=== PATIENT | female | born 1950 | race Caucasian/White ===

== ENCOUNTER 2025-03-26 13:36 | Inpatient (IN) | payer MEDICARE, SELFPAY ==
[2025-03-26] VITALS (8 sets, daily range): BP systolic 120–154; BP diastolic 84–111; PULSE 87–112; RESP 15–25; TEMP 36.4–36.6; O2SAT 8–96; BMI 44.9
--- NOTE | 2025-03-26 14:05 | XR_ITS ---
CLINICAL INDICATION: chest pain TECHNIQUE: XR chest 1V portable Exam date and time: 03/26/2025, 2:48 p.m. COMPARISON: No prior chest radiographs for comparison. FINDINGS: The cardiomediastinal silhouette is within normal limits. No airspace opacities suggestive of pneumonia. No mass detected. No pleural effusion or pneumothorax. No acute osseous abnormality detected. Left glenohumeral and acromioclavicular joint osteoarthrosis. IMPRESSION: No radiographic evidence for acute cardiopulmonary abnormality. - This report was generated utilizing speech recognition software. -
--- NOTE | 2025-03-26 14:05 | EKG_ITS ---
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
--- NOTE | 2025-03-26 14:14 | EDNOTE_ITS ---
ED Chest Pain RME/HPI General Chief Complaint: Shortness of Breath/Dyspnea Stated Complaint: SOB O2 SAT 83%, DIZZY, NOT FEELING WELL Time Seen by Provider: 03/26/25 13:51 Arrival date/time: 03/26/25 13:36 RME / HPI RME / HPI narrative: 74 year old female with no known medical history presents to the ED for complaint of chest pain and shortness of breath today. Patient states her chest pain began last night, initially described as aching in sensation, rating as severe. States the chest pain persisted through the night and this morning the chest pain described as pressure in sensation. Accompanied by feeling short of breath and dizzy. No history of similar symptoms. No known modifying factors. Related Data Allergies Allergy/AdvReac Type Severity Reaction Status Date / Time No Known Allergies Allergy Verified 03/26/25 13:39 Review of Systems Review of Systems Systems Reviewed: All systems reviewed, normal except as documented Past Medical History Past Medical History CARDIAC: Negative Cardiac Disorders or Congestive Heart Failure RESPIRATORY: Negative Chronic Obstructive Pulmonary Disease (COPD) or Asthma GENITOURINARY: Negative Renal Disease ENDOCRINE: Negative Diabetes Mellitus Type 1 or Diabetes Mellitus Type 2 HEMATOLOGIC: Negative Sickle Cell Disease Surgical History SURGICAL: Positive Abdominal Surgery, Gastric Bypass Surgery, Knee Sx (R KNEE TOTAL REPLACEMENT) and Hysterectomy Social History SMOKING STATUS: Never smoker ED Exam Narrative Physical exam: GENERAL APPEARANCE: alert and oriented x 4, well-developed, well-nourished, no acute distress HEENT: Normocephalic, atraumatic; pupils equal, round, reactive to light; EOMI; mucous membranes pink, moist; oropharynx clear NECK: Supple LUNGS: CTABL; no wheezes, no rales, no rhonchi HEART: Regular rate, regular rhythm; normal S1, S2; no murmurs ABDOMEN: non distended; normal BS; soft, no tenderness, no guarding, no r ebound; no masses, no organomegaly, no hernia BACK: no CVA tenderness EXTREMITIES: atraumatic; no edema NEUROLOGIC: awake; alert and oriented x4; cranial nerves II-XII grossly intact; no focal sensory or motor deficits PSYCHIATRIC: appropriate mood and affect SKIN: warm, dry, normal color; no rashes Course Course Course Narrative: 1540: Patient reports chest pressure at this time, still feeling short of breath. Quality Measures none Orders Category Date Time Status Bedside COVID-19 Antigen Test NOW Care 03/26/25 14:[address] Screening NOW Care 03/26/25 14:15 Active Gui Developer NOW Care 03/26/25 14:05 Active EKG (ED ONLY) *Do not use* NOW Care 03/26/25 14:05 Completed CA echo doppler complete Stat Exams 03/26/25 15:[address] angio chest Stat Exams 03/26/25 14:15 Taken EKG (ED Only) Stat Exams 03/26/25 14:05 Draft XR chest 1V portable Stat Exams 03/26/25 14:05 Completed B-Type Natriuretic Peptide Stat Lab 03/26/25 14:19 Completed CBC Stat Lab 03/26/25 14:19 Completed Comprehensive Metabolic Panel Stat Lab 03/26/25 14:19 Completed Influenza A & B Rapid Panel Stat Lab 03/26/25 14:40 Completed Lipase Stat Lab 03/26/25 14:19 Completed Magnesium Stat Lab 03/26/25 14:19 Completed Partial Thromboplastin Time Stat Lab 03/26/25 14:19 Completed Prothrombin Time with INR Stat Lab 03/26/25 14:19 Completed Troponin I Stat Lab 03/26/25 14:19 Completed Aspirin Chew Med 03/26/25 15:31 Discontinued 324 mg PO X1 ONE Heparin Inj Med 03/26/25 15:36 Discontinued 4,000 unit IV X1 ONE Heparin/D5w 25K 250 ML Ivpb [Heparin in D5w Ivpb] Med 03/26/25 15:45 Active 25,000 unit in 250 ml IV 7.93 units/kg/hr Morphine* Inj Med 03/26/25 15:44 Discontinued 2 mg IVP X1 ONE Nitroglycerin [Nitrostat 1/150] Med 03/26/25 15:33 Discontinued 0.4 mg SL X1 ONE Ondansetron Inj [Zofran Inj] Med 03/26/25 15:44 Discontinued 4 mg IVP X1 ONE Vital Signs Vital signs: Vital Signs Temperature 97.7 F 03/26/25 13:52 Pulse Rate 112 H 03/26/25 13:52 Respiratory Rate 24 H 03/26/25 13:52 Blood Pressure 154/91 H 03/26/25 13:52 Pulse Oximetry (%) 85 L 03/26/25 13:52 Oxygen Delivery Method Room Air 03/26/25 13:52 Chest Pain Patient data External records reviewed:: [facility] previous records Clinical information provided by:: patient Social determinants that could affect healthcare access:: none Patient has the following chronic illnesses:: No known medical hx How is presenting disease/condition affected by chronic disease/condition?: no chronic disease Evaluation data The following diagnostics were reviewed and interpreted by me:: lab results, radiology exam(s) and EKG tracing(s) (EKG @ 14:33h. Sinus tachycardia, rate 106, Q-wave in lead III ) Lab and/or radiology exams considered but not ordered:: None Interpretation Summary: Ordering Physician: Flavia Will MD Date of Service: 03/26/25 Procedure(s): XR chest 1V portable Accession Number(s): [id number] cc: Flavia Will MD; Gagandeep Cartagena DO~ CLINICAL INDICATION: chest pain TECHNIQUE: XR chest 1V portable Exam date and time: 03/26/2025, 2:48 p.m. COMPARISON: No prior chest radiographs for comparison. FINDINGS: The cardiomediastinal silhouette is within normal limits. No airspace opacities suggestive of pneumonia. No mass detected. No pleural effusion or pneumothorax. No acute osseous abnormality detected. Left glenohumeral and acromioclavicular joint osteoarthrosis. IMPRESSION: No radiographic evidence for acute cardiopulmonary abnormality. - This report was generated utilizing speech recognition software. - Dictated By: Gagandeep Cartagena DO Signed By: <Electronically signed by Gagandeep Cartagena DO in OV> 03/26/25 1509 Ordering Physician: Flavia Will MD Date of Service: 03/26/25 Procedure(s): CT angio chest Accession Number(s): [id number] cc: Loreto Saul PA-C ([facility]); Flavia Will MD; Gagandeep Cartagena DO~ Examination: CTA chest with intravenous contrast 2-D reconstructions 3-D reconstructions, vascular Date and time of exam: 03/26/2025, 4:22 p.m. INDICATION: Shortness of breath and chest pain COMPARISON: Same day chest radiograph CTDI: vol (mGy) 22.8 DLP: (mGycm) 458 Technique: Multiple axial sections of the thorax have been obtained. 3 mm slice thickness, from below the hemidiaphragms to above the apices of the lungs. Mediastinal and lung density settings have been obtained. 2-D sagittal and coronal reconstructions. 3-D angiographic renderings, 3-D volume renderings, 3D post processing, vascular maximum intensity projections obtained. Contrast administered is 100 mL of Isovue 370 IV. Low dose protocols were performed. One or more of the following dose reduction techniques were used; automated exposure control, adjustment of the mA and/or KV according to patient size, use of iterative reconstruction technique. Findings: Diagnostic quality: Very good. Large pulmonary emboli are visualized in the left main pulmonary artery extending into the left upper and left lower lobar arteries and their segmental and subsegmental branches. Much smaller pulmonary embolism burden is visualized on the right side, involving the distal main pulmonary artery with extension into the right lower lobar artery and segmental and subsegmental branches, most pronounced in the posterior basal segment. Mild embolism identified in the right middle lobe pulmonary artery. Asymmetric enlargement of the right ventricle and right atrium is highly suggestive of right heart strain. No pericardial fusion. Mild right basilar subsegmental atelectasis. No evidence for moderate or large pulmonary infarct. No pleural effusion or pneumothorax. No lung mass. No thoracic aortic aneurysm or dissection. No mediastinal or hilar lymphadenopathy. Equivocal very small sliding-type hiatal hernia. Below the diaphragm, evidence of gastric bypass surgery noted. Colonic diverticulosis without evidence for acute diverticulitis in the [id number]. No hydronephrosis in the [id number]. No adrenal nodules. Multifocal degenerative changes with otherwise no evidence for recent fracture or aggressive lesion. Impression: Significant pulmonary embolism burden, left side much greater than right, with evidence of right heart strain. Critical findings were immediately discussed with Dr. WILL via telephone on 03/26/2025 4:48 PM. Dictated By: Gagandeep Cartagena DO Signed By: <Electronically signed by Gagandeep Cartagena DO in OV> 03/26/25 3816 Medications / Prescriptions Medications or Prescriptions considered but not ordered:: None Medication administrations:: Medication Administration History Heparin Sodium/Dextrose (Heparin In D5w Ivpb) 25,000 unit in 250 mls @ 10 mls/hr IV .Q24H MAHIN; Protocol Stop: 04/09/25 15:44 Discontinued Medications Aspirin (Aspirin 81 Mg Chew) 324 mg PO X1 ONE Stop: 03/26/25 15:32 Last Admin: 03/26/25 16:12 Dose: 324 mg Documented By: GM Heparin Sodium (Porcine) (Heparin Sod Inj 5000 Unit/Ml Vial) 4,000 unit IV X1 ONE; Protocol Stop: 03/26/25 15:37 Morphine Sulfate (Morphine Sulf Inj 4 Mg/Ml Vial) 2 mg IVP X1 ONE Stop: 03/26/25 15:45 Last Admin: 03/26/25 16:14 Dose: 2 mg Documented By: Nitroglycerin (Nitroglycerin 0.4 Mg Subl Btl #25) 0.4 mg SL X1 ONE Stop: 03/26/25 15:34 Last Admin: 03/26/25 16:12 Dose: 0.4 mg Documented By: GM Ondansetron HCl (Ondansetron Inj 2 Mg/Ml Inj 2 Ml) 4 mg IVP X1 ONE Stop: 03/26/25 15:45 Last Admin: 03/26/25 16:10 Dose: 4 mg Documented By: See above Consultations Consultation(s) initiated? (list below): Yes Consultation #1 (Physician, Specialty, Details): I spoke with automatic gluing machine operator Dr. Trujillo. Discussed patients PMHx, HPI, ED course, exam findings, labs, and radiology results. Requesting a stat echocardiogram to be performed. He agrees to consult. Time: 15:44 Consultation #2 (Physician, Specialty, Details): I spoke with resident Dr. Parrish working with Dr. Ochoa. Discussed patients PMHx, HPI, ED course, exam findings, labs, and radiology results. The hospitalist agree to accept the patient for admission. Time: 16:14 Diagnosis Most likely diagnosis given after review of the tests above:: Pulmonary embolism Elevated troponin NSTEMI Right heart strain Admission Indicated Admission indicated?: indicated Admission Request Was there a request for admission?: Yes Admission Attestation Admission request attestation: Discussed case with [] from Hospitalist service regarding admission. Discussed patients ED course, exam findings, labs, and radiology results. The Hospitalist [agrees,declines] to accept the patient for admission. Disposition Plan Disposition Plan: Admit Discharge Plan Plan Patient Disposition: Admit Acute Care w/in Hospital Prescriptions/Referrals [facility]Loreto PA-C [Primary Care Provider] - In 1 week Problem List Clinical Impression: Pulmonary embolism, Elevated troponin, Non-ST elevation CO (NSTEMI) Patient/Caregiver Discharge Instructions Print Language: Romanian Stand Alone Forms: Gayla Award Info., Patient Portal Info Letter
[2025-03-26 15:14] LABS: B-Type Natriuretic Peptide 469 pg/mL (0-100)
[2025-03-26 15:26] LABS: Alanine Aminotransferase 51 U/L (10-49); Albumin, Serum 4.8 gm/dL (3.4-4.8); Albumin/Globulin Ratio 2.0 (1.2-2.2); Alkaline Phosphatase 101 U/L (46-116); Anion Gap 12 (7-16); Aspartate Amino Transferase 59 U/L (0-34); BUN/Creatinine Ratio 12 Ratio (12-20); Bilirubin,Total 0.4 mg/dL (0.3-1.2); Blood Urea Nitrogen 11 mg/dL (9-23); Calcium 9.7 mg/dL (8.3-10.6); Calcium (Corrected) 9.7 mg/dL (8.5-10.1); Carbon Dioxide 21.4 mMol/L (20.0-31.0); Chloride 112 mMol/L (98-107); Creatinine (Component) 0.9 mg/dL (0.6-1.3); Globulin 2.4 gm/dL (2.3-3.5); Glucose 120 mg/dL (74-106); Lipase 31 U/L (12-53); Magnesium 2.1 mg/dL (1.6-2.6); Osmolality,Calculated 289 (275-295); Potassium 4.4 mMol/L (3.4-5.1); Sodium 145 mMol/L (136-145); Total Protein 7.2 gm/dL (5.7-8.2); eGFR > 60 See Note
[2025-03-26 15:29] LABS: Troponin I 0.615 ng/mL (0.0-0.045)
[2025-03-26 15:32] LABS: Influenza A Ag Negative; Influenza B Ag Negative
[2025-03-26 15:33] LABS: INR 1.0 (0.9-1.3); Partial Thromboplastin Time 25.5 Seconds (22.0-36.0); Prothrombin Time 10.4 Seconds (9.0-12.2)
[2025-03-26 15:44] LABS: Basophils # (Auto) 0.1 Thou/mm3 (0.0-0.2); Basophils % (Auto) 1 % (0-2.5); Eosinophils # (Auto) 0.1 Thou/mm3 (0.0-0.5); Eosinophils % (Auto) 1 % (0-10); Hematocrit 42.3 % (36.0-46.0); Hemoglobin 13.8 g/dL (12.0-16.0); Immature Granulocytes Auto 0.05 Thou/mm3 (0.00-0.00); Lymphocytes # (Auto) 1.9 Thou/mm3 (1.0-4.8); Lymphocytes % (Auto) 19 % (10-50); Mean Corpuscular HGB Conc 32.6 g/dl (31.0-37.0); Mean Corpuscular Hemoglobin 29.6 pg (25.0-35.0); Mean Corpuscular Volume 91 fL (80-100); Monocytes # (Auto) 0.8 Thou/mm3 (0.0-0.8); Monocytes % (Auto) 8 % (0-12); Neutrophils # (Auto) 7.3 Thou/mm3 (1.8-7.7); Neutrophils % (Auto) 71 % (37-80); Nucleated Red Blood Cell # 0.00 Thou/mm3 (0.00-0.00); Nucleated Red Blood Cell % 0 /100 WBC (0); Platelet Count 302 Thou/mm3 (140-440); RDW Standard Deviation 46.1 fL (36.4-46.3); Red Blood Count 4.66 Miln/mm3 (4.00-5.20); White Blood Count 10.2 Thou/mm3 (3.6-11.0)
--- NOTE | 2025-03-26 15:49 | ECHO_ITS ---
Patient Info Name: Debora Wilson Age: 74 years : 1950 Gender: Female Ht: 168 cm Wt: 126 kg BSA: 2.49 m2 BP: 139 / 89 mmHg HR: 101 bpm Exam Date: 03/28/2025 8:36 AM Admit Date: 03/26/2025 Site: [facility] Room Number: 260 Patient Status: I Exam Type: CA echo doppler complete Packing Checker: Alina Grewal Ordering Physician: Flavia Will Study Info Indications nstemi - Primary Location: [id number] Left Ventricular Outflow Tract Name Value Normal LVOT 2D LVOT Diameter 1.9 cm LVOT Doppler LVOT Peak Velocity 129 cm/s LVOT Mean Gradient 4 mmHg LVOT VTI 24 cm LVOT VTI/AV VTI Ratio 0.8 LVOT Stroke Volume 67 ml Pulmonic Valve Name Value Normal PV Doppler PV Peak Velocity 105 cm/s Mitral Valve Name Value Normal MV Doppler MV Decel Meriwether 604 cm/s2 MV PHT 32 ms MV Area (PHT) 7.0 cm2 4.0-5.0 MV Diastolic Function MV E Peak Velocity 66 cm/s MV A Peak Velocity 121 cm/s MV E/A 0.5 MV Annular TDI MV Septal e' Velocity 8.1 cm/s MV E/e' (Septal) 8.2 MV Lateral e' Velocity 7.6 cm/s MV E/e' (Lateral) 8.7 MV e' Average 7.84 cm/s MV E/e' (Average) 8.4 Tricuspid Valve Name Value Normal TV Regurgitation Doppler TR Peak Velocity 259 cm/s Estimated PAP/RSVP RA Pressure 3 mmHg <=5 PA Systolic Pressure 30 mmHg <36 RV Systolic Pressure 30 mmHg <36 Aortic Valve Name Value Normal AV 2D/MM AV Cusp Sep (MM) 1.3 cm AV Doppler AV Peak Velocity 191 cm/s AV Mean Gradient 7 mmHg AV VTI 32 cm AV Area (Cont Eq VTI) 2.1 cm2 >=3.0 AV Area (Cont Eq Chance) 1.9 cm2 AV DI (Chance) 0.68 AV Regurgitation 2D LVOT Area 2.8 cm2 Ventricles Name Value Normal LV Dimensions 2D/MM IVS Diastolic Thickness (2D) 0.7 cm 0.6-0.9 LVID Diastole (2D) 3.8 cm 3.8-5.2 LVIW Diastolic Thickness (2D) 1.3 cm 0.6-0.9 LVID Systole (2D) 2.1 cm 2.2-3.5 LVOT Diameter 1.9 cm LV Mass (2D Cubed) 117.28 g 67.00-162.00 LV Mass Index (2D Cubed) 47 g/m2 43-95 Relative Wall Thickness (2D) 0.68 <=0.42 IVS/LVIW Diastolic Thickness (2D) 0.54 0.00-1.50 LV Fractional Shortening/Ejection Fraction 2D/MM LV Fractional Shortening (2D) 45 % 27-45 LV EF (2D Teichholz) 77 % Atria Name Value Normal LA Dimensions LA Volume (4C A-L) 37 ml LA Volume (BP A-L) 38 ml Left Ventricle Left ventricular chamber dimension is normal. Left ventricular systolic function is normal with visually estimated ejection fraction of 60-65%. There is concentric remodeling noted in the left ventricle. Left ventricular segmental wall motion is normal. There is grade I diastolic dysfunction in the left ventricle. Right Ventricle Right ventricular chamber dimension is mildly enlarged. Right ventricular systolic function is normal. D-Shaped ventricular septum in mid to late systole consistent with right ventricular volume overload. Left Atrium Left atrial chamber dimension is normal. Right Atrium Right atrial chamber dimension is normal. Aortic Valve The aortic valve is trileaflet. There is no aortic valve sclerosis. There is no aortic valve stenosis with a peak velocity of 191 cm/s, mean gradient of 7 mmHg, and aortic valve area of 2.1 cm2. There is no aortic valve regurgitation. Pulmonic Valve The pulmonic valve is normal. There is no pulmonic valve stenosis. There is no pulmonic regurgitation. Mitral Valve The mitral valve has normal leaflets. There is no mitral valve stenosis. There is trace mitral valve regurgitation. Tricuspid Valve The tricuspid valve leaflets are normal. There is no tricuspid valve stenosis. There is mild tricuspid valve regurgitation. No pulmonary hypertension, estimated pulmonary arterial systolic pressure is 30 mmHg and systemic blood pressure of 139 mmHg in systole. Pericardium/Pleural The pericardium appears normal. There is no pericardial effusion. No pleural effusion visualized. Inferior Vena Cava Normal inferior vena cava with >50% collapse upon inspiration consistent with normal right atrial pressure, 3 mmHg. Aorta The aortic measurements are indexed to age and body surface area. The aortic root at the sinus of Valsalva is not well visualized. The prox ascending aorta is not well visualized. Summary 1. Left ventricle size is normal and systolic function is normal. Estimated ejection fraction is 60-65%. There is grade I diastolic dysfunction. 2. Right ventricle chamber size is mildly enlarged and systolic function is normal. Estimated RVSP around 40 mmHg. Flattening of the septum during diastole indicating pressure overload. Mild RV strain. 3. There is trace mitral valve regurgitation. 4. There is mild tricuspid valve regurgitation. 5. No pericardial effusion. Report Signatures Finalized by Krish Trujillo on 03/29/2025 07:14 AM
[2025-03-26] MEDS: ONDANSETRON INJ 2 MG/ML INJ 2 ML 4 MG IVP (16:10)
[2025-03-26] MEDS: NITROGLYCERIN 0.4 MG SUBL BTL #25 SL (16:12)
[2025-03-26] MEDS: ASPIRIN 81 MG CHEW 324 MG PO (16:12)
[2025-03-26] MEDS: MORPHINE SULF INJ 4 MG/ML VIAL 2 MG IVP (16:14)
--- NOTE | 2025-03-26 16:48 | ESCONSULT_ITS ---
HPI Data of Consult Primary Care Provider: Loreto Saul([facility])SARAH Consult Narrative History of present illness: The patient is a 74-year-old female with no significant past medical history who presented to the ED with chief complaints of shortness of breath and chest tightness. She also described mild, constant chest pain radiating to her right arm and back, rated 6 out of 10, but not associated with nausea or vomiting. The primary complaint was shortness of breath. The patient reported that her symptoms began the previous day while she was working in the kitchen. She slipped but managed to maintain her balance. Shortly after, she developed severe shortness of breath and chest tightness. Initially, she thought the symptoms would resolve, but they persisted overnight and progressively worsened, prompting her to seek medical attention in the ED. The patient denies any nausea, vomiting, abdominal pain, constipation, recent viral infections, or any other associated symptoms. She reports being generally healthy, not following a primary care provider, and has no history of hypertension, diabetes, or hyperlipidemia. She is fairly active at home and independent in her activities of daily living. Upon evaluation in the ED, the patient was found to be hypoxic, saturating 85% on room air, tachycardic with a heart rate of 112, blood pressure of 154/91, and a respiratory rate of 24. Initial labs showed an unremarkable CBC, mild transaminitis with AST 59 and ALT 51, elevated troponin at 0.615, and BNP of 469. Chest x-ray was unremarkable. EKG revealed normal sinus rhythm w/o specific PE findings A CTA was performed, which showed a significant pulmonary embolism burden, with the left-sided embolism much greater than the right, and evidence of right heart strain. The patient was given sublingual nitroglycerin, a loading dose of aspirin, and morphine in the ED. A heparin drip was initiated. The patient was admitted for treatment and management of acute pulmonary embolism and possible acute coronary syndrome . Past medical history none Past surgical history hysterectomy, gastric bypass many years ago knee surgery Allergies NKDA Medication none Social history lives with her , independent in her daily activity, denies smoking, drinking, or any other recreational drug use Family history positive for heart disease mother and father cc:: cc: Review of Systems Review of Systems Systems Reviewed: All systems reviewed, normal except as documented Exam Vital Signs Temp Pulse Resp BP Pulse Ox O2 Del Method O2 Flow Rate 97.7 F 99 24 H 153/111 H 88 L Room Air 6 03/26/25 13:52 03/26/25 16:12 03/26/25 14:26 03/26/25 16:12 03/26/25 14:26 03/26/25 13:52 03/26/25 14:26 Narrative Exam GENERAL: no acute distress, AAO x3, well nourished. HEENT: Head AT/ NC. Mucous membranes moist. PERRL. NECK: Supple, no lymphadenopathy, no carotid bruits. CARDIOVASCULAR: RRR. Normal S1/S2, No m/r/g. No pitting edema of bilateral LEs. RESPIRATORY: CTAB. No wheezing, rhonchi, crackles. GASTROINTESTINAL: Abdomen soft, non tender no palpable masses. Bowel sounds present in all 4 quadrants. MUSCULOSKELETAL:? No cyanosis or edema, no visible joint swelling. NEUROLOGICAL: CN II-XII grossly intact. No focal deficits. Sensation intact, symmetric. PSYCHIATRIC: Awake and alert, not agitated, normal mood and affect. INTEGUMENTARY: No obvious rashes, no jaundice, normal turgor. Results Labs 03/26/25 14:19 03/26/25 14:19 Labs: Short CBC 03/26/25 Range/Units 14:19 WBC 10.2 (3.6-11.0) Thou/mm3 Hgb 13.8 (12.0-16.0) g/dL Hct 42.3 (36.0-46.0) % Plt Count 302 (140-440) Thou/mm3 BMP 03/26/25 14:19 Sodium 145 Potassium 4.4 Chloride 112 H Carbon Dioxide 21.4 BUN 11 Creatinine 0.9 Glucose 120 H Calcium 9.7 Cardiac Enzymes 03/26/25 Range/Units 14:19 Troponin I 0.615 H* (0.0-0.045) ng/mL Liver Function 03/26/25 Range/Units 14:19 Total Bilirubin 0.4 (0.3-1.2) mg/dL AST 59 H (0-34) U/L ALT 51 H (10-49) U/L Alkaline Phosphatase 101 (46-116) U/L Albumin 4.8 (3.4-4.8) gm/dL Quality Measures Quality Measures VTE prophylaxis and none Advance care planning discussed with:: patient Medications Home Medications and Allergies Home Medications ?Medication ?Instructions ?Recorded ?Confirmed ?Type No Known Home Medications 03/26/2509/14 History Allergies Allergy/AdvReac Type Severity Reaction Status Date / Time No Known Allergies Allergy Verified 03/26/25 13:39 Visit Medications Heparin Sodium/Dextrose (Heparin In D5w Ivpb) 25,000 unit in 250 mls @ 10 mls/hr IV .Q24H [facility]; Protocol Stop: 04/09/25 15:44 Discontinued Medications Aspirin (Aspirin 81 Mg Chew) 324 mg PO X1 ONE Stop: 03/26/25 15:32 Last Admin: 03/26/25 16:12 Dose: 324 mg Heparin Sodium (Porcine) (Heparin Sod Inj 5000 Unit/Ml Vial) 4,000 unit IV X1 ONE; Protocol Stop: 03/26/25 15:37 Morphine Sulfate (Morphine Sulf Inj 4 Mg/Ml Vial) 2 mg IVP X1 ONE Stop: 03/26/25 15:45 Last Admin: 03/26/25 16:14 Dose: 2 mg Nitroglycerin (Nitroglycerin 0.4 Mg Subl Btl #25) 0.4 mg SL X1 ONE Stop: 03/26/25 15:34 Last Admin: 03/26/25 16:12 Dose: 0.4 mg Ondansetron HCl (Ondansetron Inj 2 Mg/Ml Inj 2 Ml) 4 mg IVP X1 ONE Stop: 03/26/25 15:45 Last Admin: 03/26/25 16:10 Dose: 4 mg Assessment & Plan Plan 74-year-old female without past medical history was admitted for acute coronary syndrome/non-STEMI type I treatment and management. Cardiology was consulted for further recommendations and management. #PE with right heart strain Patient presented with chief complaints of pleuritic chest pain, and hypoxia CTA revealed significant pulmonary embolism burden with left-sided being much more affected than the right. With evidence of right heart strain. Patient presented with shortness of breath, hypoxia, tachycardia Clinical presentation is likely secondary due to acute PE rather than ACS, however non-STEMI diagnosis remains on the differential EKG revealed normal sinus without specific PE findings - Initiate heparin drip - Patient might be a candidate for thrombolysis or thrombectomy if develops hemodynamic instability - For now monitor for signs of right heart failure or worsening hypoxia -obtain ECHO #Acute coronary syndrome #Non-STEMI type II Also the PE likely explains the patient's clinical picture. ACS is still in differentials. Patient will need to continue to monitor of cardiac markers Patient presented with chest tightness, shortness of breath, mild chest pain radiating to the right arm and back, associated with deep breathing Elevated troponin 0.615 and BNP 469, along with tachycardia, hypoxia concerning for non-STEMI Patient does not have any known history of coronary artery disease, no history of hypertension, diabetes or hyperlipidemia. However her age and acute presentation concerning for underlying atherosclerotic disease - Admit to telemetry for close monitoring - Patient was given loading dose of aspirin, continue with daily dose 81 mg daily - Patient will be started on heparin drip - Patient can be started on beta-blockers to reduce myocardial oxygen demand - Start high intensity atorvastatin - Trend troponin - Continue supplementing oxygen to maintain O2 saturation above 94 - Repeat EKG in 24 hours - Stat echo - Management of risk factors such as hypertension, hyperglycemia, and stress reduction - Possible coronary angiography based on clinical condition - Keep potassium above 4, magnesium above 2 - N.p.o. after midnight Patient care was discussed with attending physician Dr. Cassandra Moore MD PGY-3 I have carefully reviewed this document. Due to imperfections in the voice software, there could be grammatical errors including phonetic/typographic errors. This in no way compromises the medical care the patient is receiving Attending Provider Attestation/Addendum I have personally seen and examined the patient separately on the above date of service and discussed the plan of care with the resident. I reviewed the resident Dr. Radha Moore consultation progress note and agree with the resident findings and plan in the note above and have also edited the documentation to reflect my findings and plan. A 74-year-old female with a past medical history of morbid obesity with BMI greater than 40, osteoarthritis status post right knee replacement 15 years ago, does not follow-up with any doctors and last seen the doctors 15 years ago presented to the emergency department for further evaluation of worsening shortness of breath and some chest tightness that started yesterday evening. Patient was apparently working in the kitchen yesterday evening when she felt that she suddenly slipped and tried to maintain her balance and then she developed severe shortness of breath and she felt that she would not be able to breathe and went to lay down but could not sleep well overnight and thought she will get better overnight but she still continued to have the shortness of breath with some chest tightness and hence came to the emergency department for further evaluation. Patient denies any other cardiac ablation including any chest pain or chest pressure orthopnea PND or dizziness or syncope or fall. In the emergency department upon initial evaluation will patient initial saturation was 93% on room air and was tachycardic around 110-120 bpm blood pressure was elevated at 154 91 bpm and respiratory rate was around 22-26/min. CBC showed normal hemoglobin of 13.8, platelet count of 382 and WBC of 10.2, INR normal at 1.0. BMP showed sodium of 145 potassium 4.4, BUN of 11 and creatinine of 0.9 glucose 120, magnesium 2.1, AST 59, ALT 51, troponin of 0.615 and BNP of 469. Rest of LFTs were normal. UA was clean. Is recommended patient to have a CT CTA showed significant pulmonary embolism but thrombus noted in the left main pulmonary artery prior to the bifurcation involving all the upper lobe as well as the lower lobe and lingula branches along with right lower lobe artery. There was evidence of right heart strain noted on the CT. Patient was placed on oxygen by nasal cannula initially 6 L/min and then changed to Ventimask at 8 L/min. Assessment and plan: 1. Acute bilateral pulmonary embolism-left greater than right 2. Elevated troponins mostly secondary to type II NSTEMI from the supply/demand mismatch 3. Acute hypoxic respiratory failure in the setting of acute bilateral pulmonary embolism 4. Mildly elevated LFTs 5. Morbid obesity with BMI greater than 40 6. Osteoarthritis status post right knee displacement 15 years ago 7. Does not follow doctors for the last 15 years Patient presented with acute hypoxic respiratory failure in the setting of acute bilateral pulmonary embolism diagnosed with CTA as noted above. CTA was reviewed by me and showed bilateral thrombus burden with left main, left lower lobe artery and left upper lobe artery along with a lingular branch as well as the right lower lobe artery. Patient is hypoxic at 83% on room air and around 93% on 8 L oxygen via Ventimask. No clear provoking factors noted. Patient denies any kind of OCP use or history of smoking or prolonged immobilization or long distance travel or any previous malignancy. Does have some history of clotting disorders in the family as per the patient but is unclear about the history. Patient also recently have COVID. Patient will need to have full workup including hypercoagulable Also Malignancy Screening As Part of the Workup. Recommendations: Recommended to start heparin bolus along with drip for anticoagulation for now. No need of any TNK as the patient is not hemodynamically unstable but does have high oxygen requirements. Recommend to check bilateral duplex of the lower extremities to rule out any acute DVT as there is notable swelling. Continue oxygen to keep saturations greater than 92% at all times. Workup included: Including CTA pulmonary embolism (PE) protocol that revealed Left > right PE with clot/filling defects in left main PA and left lobar arteries and right lower lobe artery. Right (R) heart strain evident on CTA. Labs revealed elevated troponins , BNP, ech showed right heart strain and pt was hypoxic requiring oxygen via nasal canula. Pt was risk stratified as intermediate high-risk/submassive high-risk PE. Plan ofcare is computer assisted vacuum thrombectomy (CAVT) of pulmonary embolus. Discussed again the risk-benefit and alternatives of performing the right heart catheter with pulmonary angiogram and possible mechanical thrombectomy based on the imaging. Explained the risk of bleeding, pulmonary hemorrhage, vascular complications, complication secondary to sedation, heart attack and even in detail. Patient agreeable for the procedure and provided consent for the same. Recommend to keep the patient n.p.o. past midnight and plan for mechanical thrombectomy in AM. Management of rest of the medical conditions as per primary team and other consultants. Thank you for the consult and allowing me to participate in the care of the patient. Cardiology will continue to follow. Krish Trujillo M.D. Interventional Cardiology
[2025-03-26] MEDS: HEPARIN SOD INJ 5000 UNIT/ML VIAL 4000 UNIT IV (16:57)
[2025-03-26] MEDS: Heparin/D5w 25K 250 ML Ivpb 25,000 UNIT/250 ML BAG 10 UNIT IV (17:00)
--- NOTE | 2025-03-26 17:14 | XR_ITS ---
Examination: Venous duplex lower extremity sonogram, bilateral. Date and time of exam: 03/26/2025 INDICATION: Bilateral leg swelling and pain for 6 months COMPARISON: None Technique: Multiple sonographic images of the deep venous system have been obtained. B-mode/2-D grayscale imaging of vascular structures and Doppler spectral analysis (waveforms) and color performed Both legs are examined. Findings: Right lower extremity: The right common femoral vein as well as the greater saphenous vein are patent and compressible. Otherwise, there is noncompressible occlusive thrombus in the femoral vein from proximal to distal as well as the popliteal, peroneal and posterior tibial veins. Left lower extremity: The left common femoral, femoral, popliteal, peroneal, posterior tibial and greater saphenous veins are patent and compressible with intact color flow throughout. Biphasic waveforms are compatible with right heart strain due to large PE burden seen on same-day CTA chest. Impression: Extensive occlusive thrombus in the right lower extremity as described. No evidence for DVT in the left lower extremity.
--- NOTE | 2025-03-26 17:21 | ESHP_ITS ---
Documentation for date of: 03/26/25 HPI History of Present Illness Chief complaint: Shortness of breath History of present illness: A 74-year-old female with no significant past medical history, did not see a doctor and the last 15 years presented to the hospital with chief complaints of shortness of breath and chest, abdominal discomfort since 1 day. Patient reported that since August 2024, patient is having tiredness even with minimal physical activities due to which she is mostly lying on the bed and not doing much activities other than household activities. Since yesterday evening, patient noted to have discomfort in the abdomen and chest discomfort, with radiation of the pain from the neck to right arm. Denies fever, palpitations, orthopnea, PND, burning micturition, syncopal episodes. Reported that she had on and off pedal edema. Abdominal and chest discomfort started yesterday the evening, but as the patient did not want to come to the hospital took a dose of Benadryl and tried to sleep but not able to fall asleep because of the discomfort and this morning as the discomfort is not subsiding, patient came to hospital for further evaluation. Denies cough, hematemesis, hemoptysis ED course: - Vitals at the time of admission are significant for blood pressure 154/91 mmHg, pulse rate 112 bpm, respiratory 24/min, SpO2 85% with 6 L oxygen - Labs at the time of admission significant for AST 59, ALT 51, troponin 0.615, BNP 469 - Chest x-ray at the time of admission did not show any significant abnormality - Chest CTA showed significant pulmonary embolism burden, left side much greater than right with evidence of right heart strain - EKG showed sinus tachycardia with no significant ST and T wave changes - Patient is admitted in the hospital for pulmonary thromboembolism and is started on heparin drip Past medical history: Nonsignificant Past surgical history: Hysterectomy, gastric bypass, knee replacement Social history: Denies smoking, alcohol, other illicit drug abuse. Retired and lives at home with the Allergies: NKDA Review of Systems Review of Systems Systems Reviewed: All systems reviewed, normal except as documented Exam Vital Signs Temp Pulse Resp BP Pulse Ox O2 Del Method O2 Flow Rate 97.7 F 99 24 H 153/111 H 88 L Room Air 6 03/26/25 13:52 03/26/25 16:12 03/26/25 14:26 03/26/25 16:12 03/26/25 14:26 03/26/25 13:52 03/26/25 14:26 Narrative Exam General: Awake. obese HEENT: Normocephalic, atraumatic, mucous membranes moist. Heart: Regular rate and rhythm, no murmurs. Lungs: Clear to auscultation with no wheezing or crackles. Abdomen: Soft, nondistended, nontender, positive bowel sounds. ?No guarding or rebound tenderness. Neurologic: Alert and oriented x3, no gross neurological deficit, and patient able to move all 4 extremities. Extremities: Bilateral 1+ pedal edema. Skin: No rash or ecchymoses. Results: Labs 03/26/25 14:19 03/26/25 14:19 Labs: Short CBC 03/26/25 Range/Units 14:19 WBC 10.2 (3.6-11.0) Thou/mm3 Hgb 13.8 (12.0-16.0) g/dL Hct 42.3 (36.0-46.0) % Plt Count 302 (140-440) Thou/mm3 BMP 03/26/25 14:19 Sodium 145 Potassium 4.4 Chloride 112 H Carbon Dioxide 21.4 BUN 11 Creatinine 0.9 Glucose 120 H Calcium 9.7 Cardiac Enzymes 03/26/25 Range/Units 14:19 Troponin I 0.615 H* (0.0-0.045) ng/mL Liver Function 03/26/25 Range/Units 14:19 Total Bilirubin 0.4 (0.3-1.2) mg/dL AST 59 H (0-34) U/L ALT 51 H (10-49) U/L Alkaline Phosphatase 101 (46-116) U/L Albumin 4.8 (3.4-4.8) gm/dL Quality Measures Quality Measures none Advance care planning discussed with:: patient Medications Home Medications and Allergies Home Medications ?Medication ?Instructions ?Recorded ?Confirmed ?Type No Known Home Medications 03/26/2509/14 History Allergies Allergy/AdvReac Type Severity Reaction Status Date / Time No Known Allergies Allergy Verified 03/26/25 13:39 Visit Medications Heparin Sodium/Dextrose (Heparin In D5w Ivpb) 25,000 unit in 250 mls @ 10 mls/hr IV .Q24H [facility]; Protocol Stop: 04/09/25 15:44 Last Admin: 03/26/25 17:00 Dose: 7.93 units/kg/hr, 10 mls/hr Discontinued Medications Aspirin (Aspirin 81 Mg Chew) 324 mg PO X1 ONE Stop: 03/26/25 15:32 Last Admin: 03/26/25 16:12 Dose: 324 mg Heparin Sodium (Porcine) (Heparin Sod Inj 5000 Unit/Ml Vial) 4,000 unit IV X1 ONE; Protocol Stop: 03/26/25 15:37 Last Admin: 03/26/25 16:57 Dose: 4,000 unit Morphine Sulfate (Morphine Sulf Inj 4 Mg/Ml Vial) 2 mg IVP X1 ONE Stop: 03/26/25 15:45 Last Admin: 03/26/25 16:14 Dose: 2 mg Nitroglycerin (Nitroglycerin 0.4 Mg Subl Btl #25) 0.4 mg SL X1 ONE Stop: 03/26/25 15:34 Last Admin: 03/26/25 16:12 Dose: 0.4 mg Ondansetron HCl (Ondansetron Inj 2 Mg/Ml Inj 2 Ml) 4 mg IVP X1 ONE Stop: 03/26/25 15:45 Last Admin: 03/26/25 16:10 Dose: 4 mg Assessment & Plan Plan A 74-year-old female with no significant past medical history, did not see a doctor and the last 15 years presented to the hospital with chief complaints of shortness of breath and chest, abdominal discomfort since 1 day and admitted in the hospital for pulmonary thromboembolism and is started on heparin drip . #Acute Hypoxic respiratory failure #Pulmonary thromboembolism - Presented to the hospital with chief complaints of shortness of breath and chest, abdominal discomfort since 1 day. - Since yesterday evening, patient noted to have discomfort in the abdomen and chest discomfort, with radiation of the pain from the neck to right arm. - Denies cough, hematemesis, hemoptysis - Vitals at the time of admission are significant for blood pressure 154/91 mmHg, pulse rate 112 bpm, respiratory 24/min, SpO2 85% with 6 L oxygen - Labs at the time of admission significant for AST 59, ALT 51, troponin 0.615, BNP 469 - Chest x-ray at the time of admission did not show any significant abnormality - Chest CTA showed significant pulmonary embolism burden, left side much greater than right with evidence of right heart strain - EKG showed sinus tachycardia with no significant ST and T wave changes Plan - Started on Heparin drip - Spectral Scientist, Dr. Trujillo is consulted and will appreciate his recommendations - Echocardiogram is ordered, will follow-up with the results - Lower extremities venous doppler has been obtained, awaiting read - Continue with supplemental Oxygen, currently on 8L/min, wean as tolerated - Though patient is not hemodynamically unstable, noted to have elevated troponins and right ventricular strain-might benefit from mechanical thrombectomy # NSTEMI, type II - Noted to have troponin of 0.615 at the time of admission - Likely from the pulmonary embolism - EKG did not show any ST and T wave changes Plan - Will continue to trend troponins - Patient is on heparin drip # Mild transaminitis - AST is 59 and ALT is 51 - Patient is morbidly obese and the elevated liver enzymes could be due to NAFLD Plan - Will continue to monitor LFTs #Hypertension - Blood pressure on presentation 154/91 - We will monitor for now, if continues to be elevated, we will start antihypertensives Hospital Maintenance: Dispo: Tele DVT ppx: Heparin drip GI ppx: Protonix Diet: NPO IV lines: Peripheral Code status: Full Patient plan of care was discussed with the attending physician, Dr. Gabriela Parrish, PGY2 Attending Provider Attestation/Addendum I have seen and examined the patient. I was physically present for the kimball portions of the services provided including history, physical exam, diagnosis, treatment plans and orders. I agree with assessment and plan of care as documented by residents. After examination of the patient and review of the clinical data I feel that this patient needs admission to the hospital for further treatment/evaluation. Patient is a 74 years old female without known past medical history who presented to the ED with complaint of shortness of breath and chest discomfort. Her symptoms started yesterday evening. Patient has decreased physical activities as she becomes easily tired and also has pain around her left knee. Denies any known malignancy, regular medication, clotting disorder or family history of clotting disorder, recent surgery. Patient however has not seen any physician in the last 15 years. In the ED, patient was found to be mildly hypertensive, tachycardic, tachypneic and was hypoxic. Lab results were significant for mild elevation in troponin 0.615, BNP 469, AST/ALT 59/51. CTA chest was obtained, showed significant pulmonary embolism burden, left side much greater than the right with evidence of right heart strain. Echocardiography did not show ST changes. We will admit the patient for management of acute hypoxic respiratory failure secondary to pulmonary embolism. Discussed with cardiology, started patient on heparin drip. Patient is planned for mechanical thrombectomy with cardiology in AM. Ordered bilateral lower extremity venous Doppler and echocardiography. We will trend the troponin until it downtrends. We will also continue to monitor LFTs closely. Plan to monitor blood pressure for now, if continues to be elevated, we will start her on antihypertensives. Even though this this note was carefully revised there may still be minor errors in gardening manager due to voice recognition software. Liza Ochoa MD
[2025-03-26] MEDS: Heparin/D5w 25K 250 ML Ivpb 25,000 UNIT/250 ML BAG 18 UNIT IV (18:22)
[2025-03-26 20:59] LABS: Hepatitis A Antibody IgM Non Reactive (Non React); Hepatitis B Core Antibody IgM Non Reactive (Non React); Hepatitis B Surface Antigen Non Reactive (Non React); Hepatitis C Antibody Non Reactive (Non React)
[2025-03-27] VITALS (20 sets, daily range): BP systolic 128–179; BP diastolic 73–113; PULSE 61–98; RESP 13–97; TEMP 36.1–36.8; O2SAT 91–100
[2025-03-27 00:11] LABS: Partial Thromboplastin Time 71.0 Seconds (22.0-36.0)
[2025-03-27 06:32] LABS: Partial Thromboplastin Time 83.0 Seconds (22.0-36.0)
--- NOTE | 2025-03-27 06:39 | PC.NURSE ---
PTT still not back at this time as pt is on heparin drip on 03/27/25 0661
[2025-03-27 06:42] LABS: Alanine Aminotransferase 38 U/L (10-49); Albumin, Serum 4.0 gm/dL (3.4-4.8); Albumin/Globulin Ratio 2.0 (1.2-2.2); Alkaline Phosphatase 83 U/L (46-116); Anion Gap 11 (7-16); Aspartate Amino Transferase 39 U/L (0-34); BUN/Creatinine Ratio 13 Ratio (12-20); Bilirubin,Total 0.3 mg/dL (0.3-1.2); Blood Urea Nitrogen 10 mg/dL (9-23); Calcium 8.9 mg/dL (8.3-10.6); Calcium (Corrected) 8.9 mg/dL (8.5-10.1); Carbon Dioxide 22.5 mMol/L (20.0-31.0); Cardiac Risk Estimate 3.0 RATIO (3.7-5.6); Chloride 112 mMol/L (98-107); Cholesterol 163 mg/dL (132-200); Creatinine (Component) 0.8 mg/dL (0.6-1.3); Estimated Creatinine Clearance 86.1 mL/min (>60); Globulin 2.0 gm/dL (2.3-3.5); Glucose 112 mg/dL (74-106); HDL Cholesterol 55 mg/dL (40-60); LDL Cholesterol,Calculated 85 mg/dL (0-130); Magnesium 1.8 mg/dL (1.6-2.6); Osmolality,Calculated 288 (275-295); Phosphorous 3.7 mg/dL (2.4-5.1); Potassium 3.9 mMol/L (3.4-5.1); Sodium 145 mMol/L (136-145); Thyroid Stimulating Hormone 3.30 uIU/mL (0.55-4.78); Total Protein 6.0 gm/dL (5.7-8.2); Triglycerides 114 mg/dL (30-150); eGFR > 60 See Note
--- NOTE | 2025-03-27 07:22 | PD.RESPRO ---
Documentation for date of: 03/27/25 Subjective Subjective Interval history: The patient is a 74-year-old female with no significant past medical history who presented to the ED with chief complaints of shortness of breath and chest tightness. She also described mild, constant chest pain radiating to her right arm and back, rated 6 out of 10, but not associated with nausea or vomiting. The primary complaint was shortness of breath. The patient reported that her symptoms began the previous day while she was working in the kitchen. She slipped but managed to maintain her balance. Shortly after, she developed severe shortness of breath and chest tightness. Initially, she thought the symptoms would resolve, but they persisted overnight and progressively worsened, prompting her to seek medical attention in the ED. The patient denies any nausea, vomiting, abdominal pain, constipation, recent viral infections, or any other associated symptoms. She reports being generally healthy, not following a primary care provider, and has no history of hypertension, diabetes, or hyperlipidemia. She is fairly active at home and independent in her activities of daily living. Upon evaluation in the ED, the patient was found to be hypoxic, saturating 85% on room air, tachycardic with a heart rate of 112, blood pressure of 154/91, and a respiratory rate of 24. Initial labs showed an unremarkable CBC, mild transaminitis with AST 59 and ALT 51, elevated troponin at 0.615, and BNP of 469. Chest x-ray was unremarkable. EKG revealed normal sinus rhythm w/o specific PE findings A CTA was performed, which showed a significant pulmonary embolism burden, with the left-sided embolism much greater than the right, and evidence of right heart strain. The patient was given sublingual nitroglycerin, a loading dose of aspirin, and morphine in the ED. A heparin drip was initiated. The patient was admitted for treatment and management of acute pulmonary embolism and possible acute coronary syndrome . 03/27/2025: Patient was seen and examined at bedside. No acute overnight events. Labs are stable, Troponin downtrending, patient is NPO . Plan is CAVT of pulmonary embolus. Yesterday we discussed the risk-benefit and alternatives Explained the risk of bleeding, pulmonary hemorrhage, vascular complications, complication secondary to sedation, heart attack and even in detail. Patient agreeable for the procedure and provided consent. The whole team was present. US of LE was performed, positive for DVT :there is noncompressible occlusive thrombus in the femoral vein from proximal to distal as well as the popliteal, peroneal and posterior tibial veins. After CAVT continue heparin drip, continue hep infusion until catheter entry site is evaluated to ensure there is no bleeding or hematoma formation. On discharge patient can be transitioned to [facility] Exam Vital Signs Temp Pulse Resp BP Pulse Ox O2 Del Method O2 Flow Rate 96.9 F 78 19 139/89 H 95 Nasal Cannula 8 03/27/25 04:00 03/27/25 04:00 03/27/25 04:00 03/27/25 04:00 03/27/25 04:00 03/27/25 04:00 03/27/25 04:00 Narrative Exam GENERAL: no acute distress, AAO x3, well nourished. HEENT: Head AT/ NC. Mucous membranes moist. PERRL. NECK: Supple, no lymphadenopathy, no carotid bruits. CARDIOVASCULAR: RRR. Normal S1/S2, No m/r/g. No pitting edema of bilateral LEs. RESPIRATORY: CTAB. No wheezing, rhonchi, crackles. Hypoxic, on 8L oxy mask sat 94% GASTROINTESTINAL: Abdomen soft, non tender no palpable masses. Bowel sounds present in all 4 quadrants. MUSCULOSKELETAL:? No cyanosis or edema, no visible joint swelling. NEUROLOGICAL: CN II-XII grossly intact. No focal deficits. Sensation intact, symmetric. PSYCHIATRIC: Awake and alert, not agitated, normal mood and affect. INTEGUMENTARY: No obvious rashes, no jaundice, normal turgor. Objective Labs 03/29/25 04:54 03/29/25 04:54 Labs: Laboratory Results - last 24 hr 03/26/25 03/26/25 03/26/25 14:19 14:40 23:23 WBC 10.2 RBC 4.66 Hgb 13.8 Hct 42.3 MCV 91 MCH 29.6 MCHC 32.6 RDW Std Deviation 46.1 Plt Count 302 Neut % (Auto) 71 Lymph % (Auto) 19 Turner % (Auto) 8 Eos % (Auto) 1 Baso % (Auto) 1 Neut # (Auto) 7.3 Lymph # (Auto) 1.9 Turner # (Auto) 0.8 Eos # (Auto) 0.1 Baso # (Auto) 0.1 Immature Gran # (Auto) 0.05 H Absolute Nucleated RBC 0.00 Immature Gran % 1 H Nucleated RBC % 0 PT 10.4 INR 1.0 APTT 25.5 71.0 H D Sodium 145 Potassium 4.4 Chloride 112 H Carbon Dioxide 21.4 Anion Gap 12 BUN 11 Creatinine 0.9 Estim Creat Clear Calc Not Performed. eGFR > 60 BUN/Creatinine Ratio 12 Glucose 120 H Calculated Osmolality 289 Calcium 9.7 Corrected Calcium 9.7 Phosphorus Magnesium 2.1 Total Bilirubin 0.4 AST 59 H ALT 51 H Alkaline Phosphatase 101 Troponin I 0.615 H* B-Natriuretic Peptide 469 H* Total Protein 7.2 Albumin 4.8 Globulin 2.4 Albumin/Globulin Ratio 2.0 Triglycerides Cholesterol LDL Cholesterol, Calc HDL Cholesterol Cholesterol/HDL Ratio Lipase 31 TSH Hepatitis A IgM Ab Non Reactive Hep Bs Antigen Non Reactive Hep B Core IgM Ab Non Reactive Hepatitis C Antibody Non Reactive Influenza A (Rapid) Negative Influenza B (Rapid) Negative Blood Bank Wristband ID 03/27/25 05:39 WBC RBC Hgb Hct MCV MCH MCHC RDW Std Deviation Plt Count Neut % (Auto) Lymph % (Auto) Turner % (Auto) Eos % (Auto) Baso % (Auto) Neut # (Auto) Lymph # (Auto) Turner # (Auto) Eos # (Auto) Baso # (Auto) Immature Gran # (Auto) Absolute Nucleated RBC Immature Gran % Nucleated RBC % PT INR APTT Sodium 145 Potassium 3.9 D Chloride 112 H Carbon Dioxide 22.5 Anion Gap 11 BUN 10 Creatinine 0.8 Estim Creat Clear Calc 86.1 eGFR > 60 BUN/Creatinine Ratio 13 Glucose 112 H Calculated Osmolality 288 Calcium 8.9 Corrected Calcium 8.9 Phosphorus 3.7 Magnesium 1.8 Total Bilirubin 0.3 AST 39 H ALT 38 Alkaline Phosphatase 83 Troponin I B-Natriuretic Peptide Total Protein 6.0 Albumin 4.0 D Globulin 2.0 L Albumin/Globulin Ratio 2.0 Triglycerides 114 Cholesterol 163 LDL Cholesterol, Calc 85 HDL Cholesterol 55 Cholesterol/HDL Ratio 3.0 L Lipase TSH 3.30 Hepatitis A IgM Ab Hep Bs Antigen Hep B Core IgM Ab Hepatitis C Antibody Influenza A (Rapid) Influenza B (Rapid) Blood Bank Wristband ID Yes Quality Measures Quality Measures VTE prophylaxis and none Advance care planning discussed with:: patient Assessment & Plan Assessment Current Active Medications: Generic Name Dose Route Start Last Admin Trade Name Freq PRN Reason Stop Dose Admin Acetaminophen 650 mg 03/26/25 17:17 Acetaminophen 325 Mg Tablet PO 04/25/25 17:16 Q6H PRN Fever >101.5 Heparin Sodium/Dextrose 25,000 unit in 250 mls @ 18 mls/hr 03/26/25 18:15 03/27/25 00:33 Heparin In D5w Ivpb IV 04/09/25 18:14 14.27 units/kg/hr .[id number] MAHIN 18 mls/hr Protocol Titration 14.2744 UNITS/KG/HR Morphine Sulfate 2 mg 03/26/25 17:17 Morphine Sulf Inj 4 Mg/Ml Vial IVP 03/31/25 17:16 Q6HR PRN PAIN SCALE 7-10 (Severe Pantoprazole Sodium 40 mg 03/27/25 09:00 Pantoprazole Inj 40 Mg Vial IVP 04/26/25 08:59 QDAY [facility] Sennosides 1 tab 03/27/25 09:00 Senna Tablet PO 04/26/25 08:59 QDAY [facility] Protocol Plan 74-year-old female without past medical history was admitted for acute coronary syndrome/non-STEMI type I treatment and management. Cardiology was consulted for further recommendations and management. #Acute bilateral pulmonary embolism-left greater than right with right heart strain #Acute hypoxic respiratory failure in the setting of acute bilateral pulmonary embolis Patient presented with chief complaints of pleuritic chest pain, and hypoxia CTA revealed significant pulmonary embolism burden with left-sided being much more affected than the right. With evidence of right heart strain. Patient presented with shortness of breath, hypoxia, tachycardia Clinical presentation is likely secondary due to acute PE rather than ACS, however non-STEMI diagnosis remains on the differential EKG revealed normal sinus without specific PE findings - heparin drip -Plan is CAVT of pulmonary embolus today.. Yesterday we discussed the risk-benefit and alternatives Explained the risk of bleeding, pulmonary hemorrhage, vascular complications, complication secondary to sedation, heart attack and even in detail. Patient agreeable for the procedure and provided consent -after cath continue heparin drip, continue hep infusion until catheter entry site is evaluated to ensure there is no bleeding or hematoma formation. On discharge patient can be transitioned to [facility] -obtain ECHO #Non-STEMI type II Also the PE likely explains the patient's clinical picture. elevated troponis most likely secondary to demand ischamia Patient presented with chest tightness, shortness of breath, mild chest pain radiating to the right arm and back, associated with deep breathing Elevated troponin 0.615 and BNP 469, along with tachycardia, hypoxia concerning for non-STEMI Patient does not have any known history of coronary artery disease, no history of hypertension, diabetes or hyperlipidemia. However her age and acute presentation concerning for underlying atherosclerotic disease - Admit to telemetry for close monitoring - Patient was given loading dose of aspirin, continue with daily dose 81 mg daily - Patient will be started on heparin drip - Patient can be started on beta-blockers to reduce myocardial oxygen demand - Start high intensity atorvastatin - Continue supplementing oxygen to maintain O2 saturation above 94 - Repeat EKG in 24 hours - Stat echo - Management of risk factors such as hypertension, hyperglycemia, and stress reduction - coronary angiography will be needed in a future given the high risk of atherosclerotic disease - Keep potassium above 4, magnesium above 2 #Occlusive DVT US of LE was performed, positive for DVT :there is noncompressible occlusive thrombus in the femoral vein from proximal to distal as well as the popliteal, peroneal and posterior tibial veins. -continue hep drip -on DC transition to [facility]. #Mildly elevated LFTs # Morbid obesity with BMI greater than 40 # Osteoarthritis status post right knee displacement 15 years ago # Does not follow doctors for the last 15 years Patient care was discussed with attending physician Dr. Cassandra Moore MD PGY-3 I have carefully reviewed this document. Due to imperfections in the voice software, there could be grammatical errors including phonetic/typographic errors. This in no way compromises the medical care the patient is receiving Attending Provider Attestation/Addendum I have personally seen and examined the patient separately on the above date of service and discussed the plan of care with the resident. I reviewed the resident Radha Fatima consultation progress note and agree with the resident findings and plan in the note above and have also edited the documentation to reflect my findings and plan. Krish Trujillo M.D. Interventional Cardiology
[2025-03-27 07:46] LABS: Troponin I 0.331 ng/mL (0.0-0.045)
[2025-03-27 08:32] LABS: Basophils # (Auto) 0.1 Thou/mm3 (0.0-0.2); Basophils % (Auto) 1 % (0-2.5); Eosinophils # (Auto) 0.3 Thou/mm3 (0.0-0.5); Eosinophils % (Auto) 3 % (0-10); Hematocrit 36.8 % (36.0-46.0); Hemoglobin 12.0 g/dL (12.0-16.0); Immature Granulocytes Auto 0.04 Thou/mm3 (0.00-0.00); Lymphocytes # (Auto) 2.8 Thou/mm3 (1.0-4.8); Lymphocytes % (Auto) 28 % (10-50); Mean Corpuscular HGB Conc 32.6 g/dl (31.0-37.0); Mean Corpuscular Hemoglobin 30.1 pg (25.0-35.0); Mean Corpuscular Volume 92 fL (80-100); Monocytes # (Auto) 1.0 Thou/mm3 (0.0-0.8); Monocytes % (Auto) 10 % (0-12); Neutrophils # (Auto) 5.9 Thou/mm3 (1.8-7.7); Neutrophils % (Auto) 58 % (37-80); Nucleated Red Blood Cell # 0.00 Thou/mm3 (0.00-0.00); Nucleated Red Blood Cell % 0 /100 WBC (0); Platelet Count 216 Thou/mm3 (140-440); RDW Standard Deviation 47.9 fL (36.4-46.3); Red Blood Count 3.99 Miln/mm3 (4.00-5.20); White Blood Count 10.1 Thou/mm3 (3.6-11.0)
--- NOTE | 2025-03-27 09:43 | PC.SS ---
SOUR BLEACHING PLEATER conducted phone contact with the patient?s spouse, Lang Wilson to conduct initial assessment and to discuss discharge planning on behalf of the patient.? Patient not present at bedside due to undergoing thrombectomy procedure.? Patient resides at home with spouse.? Patient is retired.? Patient does not utilize DME for ambulation assistance.? Patient does not utilize home oxygen.? Currently on 8L nasal cannula.? Patient possesses the ability to complete her ADL?s independently.? Patient?s surrogate medical decision maker is spouse, Lang Wilson.? Patient is not aligned with PCP. Per spouse patient has not seen a physician in 15 years. ?No preferred pharmacy identified by patient?s spouse.? Discharge plan is for the patient to return home.? If home oxygen required, no preferred vendor identified.? Family will provide transportation on behalf of the patient.? resident services director will assist patient with PCP alignment if patient is receptive.? No discharge needs identified by the patient.? No further intervention required at this time, social science manager will be available to address any further concerns.? D/C Plan: Home Next of Kin: Lang Wilson
[2025-03-27] MEDS: LEVALBUTEROL RT 1.25 MG/0.5 ML NEBU INH (10:35)
[2025-03-27] MEDS: SODIUM CHLORIDE RT SOL 0.9% 3 ML NEBU INH (10:35)
[2025-03-27] MEDS: ACETAMINOPHEN 325 MG TABLET 650 MG PO (13:24)
--- NOTE | 2025-03-27 14:01 | ESPR_ITS ---
<Statement entered by Lucia Gaffney MD - 03/27/25 14:49> Patient was seen and examined by me personally. I have directly supervised and reviewed documentation by the team resident and agree with its findings with any exceptions or additional findings as below. Plan of care was discussed with the attending, Dr. Saez. Patient remained on 8L O2 overnight, saturating 92-95%, continued on heparin drip overnight. Bilateral lower extremity dopper US obtained yesterday showed extensive occlusive thrombus in the right lower extremity, no evidence of DVT in the left lower extremity. CBC stable, CMP stable, troponin downtrended 0.331. Patient is in thrombectomy procedure this morning. Lucia Gaffney, PGY-3 Documentation for date of: 03/27/25 Subjective Subjective Interval history: Overnight, patient's O2 saturation held between 92-95% on 9 L NC and she was continued on heparin drip overnight. 03/26 venous doppler study has resulted and showed extensive occlusive thrombus in the right lower extremity. At the time of pre-rounding this morning, patient was not present in her room due to being at the Cardiac Catheterization Lab for thrombectomy. Vitals/labs today significant for troponin 0.615->0.331. Lipid panel and TSH returned WNL. Exam Vital Signs Temp Pulse Resp BP Pulse Ox O2 Del Method O2 Flow Rate 98.1 F 98 18 128/91 H 96 Room Air 2 03/27/25 09:58 03/27/25 13:22 03/27/25 13:22 03/27/25 13:22 03/27/25 13:22 03/27/25 13:22 03/27/25 10:35 Narrative Exam General: Awake. obese HEENT: Normocephalic, atraumatic, mucous membranes moist. Heart: Regular rate and rhythm, no murmurs. Lungs: Clear to auscultation with no wheezing or crackles. Abdomen: Soft, nondistended, nontender, positive bowel sounds. ?No guarding or rebound tenderness. Neurologic: Alert and oriented x3, no gross neurological deficit, and patient able to move all 4 extremities. Extremities: Bilateral 1+ pedal edema. Skin: No rash or ecchymoses. Objective Labs 03/28/25 05:40 03/28/25 05:40 Labs: Laboratory Results - last 24 hr 03/26/25 03/26/25 03/26/25 14:19 14:40 23:23 WBC 10.2 RBC 4.66 Hgb 13.8 Hct 42.3 MCV 91 MCH 29.6 MCHC 32.6 RDW Std Deviation 46.1 Plt Count 302 Neut % (Auto) 71 Lymph % (Auto) 19 Wilson % (Auto) 8 Eos % (Auto) 1 Baso % (Auto) 1 Neut # (Auto) 7.3 Lymph # (Auto) 1.9 Wilson # (Auto) 0.8 Eos # (Auto) 0.1 Baso # (Auto) 0.1 Immature Gran # (Auto) 0.05 H Absolute Nucleated RBC 0.00 Immature Gran % 1 H Nucleated RBC % 0 PT 10.4 INR 1.0 APTT 25.5 71.0 H D Sodium 145 Potassium 4.4 Chloride 112 H Carbon Dioxide 21.4 Anion Gap 12 BUN 11 Creatinine 0.9 Estim Creat Clear Calc Not Performed. eGFR > 60 BUN/Creatinine Ratio 12 Glucose 120 H Calculated Osmolality 289 Calcium 9.7 Corrected Calcium 9.7 Phosphorus Magnesium 2.1 Total Bilirubin 0.4 AST 59 H ALT 51 H Alkaline Phosphatase 101 Troponin I 0.615 H* B-Natriuretic Peptide 469 H* Total Protein 7.2 Albumin 4.8 Globulin 2.4 Albumin/Globulin Ratio 2.0 Triglycerides Cholesterol LDL Cholesterol, Calc HDL Cholesterol Cholesterol/HDL Ratio Lipase 31 TSH Hepatitis A IgM Ab Non Reactive Hep Bs Antigen Non Reactive Hep B Core IgM Ab Non Reactive Hepatitis C Antibody Non Reactive Influenza A (Rapid) Negative Influenza B (Rapid) Negative Blood Type Antibody Screen Blood Bank Wristband ID 03/27/25 05:39 WBC 10.1 RBC 3.99 L Hgb 12.0 Hct 36.8 MCV 92 MCH 30.1 MCHC 32.6 RDW Std Deviation 47.9 H Plt Count 216 D Neut % (Auto) 58 Lymph % (Auto) 28 Wilson % (Auto) 10 Eos % (Auto) 3 Baso % (Auto) 1 Neut # (Auto) 5.9 Lymph # (Auto) 2.8 Wilson # (Auto) 1.0 H Eos # (Auto) 0.3 Baso # (Auto) 0.1 Immature Gran # (Auto) 0.04 H Absolute Nucleated RBC 0.00 Immature Gran % 0 Nucleated RBC % 0 PT INR APTT 83.0 H D Sodium 145 Potassium 3.9 D Chloride 112 H Carbon Dioxide 22.5 Anion Gap 11 BUN 10 Creatinine 0.8 Estim Creat Clear Calc 86.1 eGFR > 60 BUN/Creatinine Ratio 13 Glucose 112 H Calculated Osmolality 288 Calcium 8.9 Corrected Calcium 8.9 Phosphorus 3.7 Magnesium 1.8 Total Bilirubin 0.3 AST 39 H ALT 38 Alkaline Phosphatase 83 Troponin I 0.331 H* D B-Natriuretic Peptide Total Protein 6.0 Albumin 4.0 D Globulin 2.0 L Albumin/Globulin Ratio 2.0 Triglycerides 114 Cholesterol 163 LDL Cholesterol, Calc 85 HDL Cholesterol 55 Cholesterol/HDL Ratio 3.0 L Lipase TSH 3.30 Hepatitis A IgM Ab Hep Bs Antigen Hep B Core IgM Ab Hepatitis C Antibody Influenza A (Rapid) Influenza B (Rapid) Blood Type A Negative Antibody Screen NEGATIVE Blood Bank Wristband ID Yes Quality Measures Quality Measures VTE prophylaxis and none Advance care planning discussed with:: patient Assessment & Plan Assessment Current Active Medications: Generic Name Dose Route Start Last Admin Trade Name Freq PRN Reason Stop Dose Admin Acetaminophen 650 mg 03/26/25 17:17 Acetaminophen 325 Mg Tablet PO 04/25/25 17:16 Q6H PRN Fever >101.5 Heparin Sodium/Dextrose 25,000 unit in 250 mls @ 18 mls/hr 03/26/25 18:15 03/27/25 00:33 Heparin In D5w Ivpb IV 04/09/25 18:14 14.27 units/kg/hr .[id number] MAHIN 18 mls/hr Protocol Titration 14.2744 UNITS/KG/HR Morphine Sulfate 2 mg 03/26/25 17:17 Morphine Sulf Inj 4 Mg/Ml Vial IVP 03/31/25 17:16 Q6HR PRN PAIN SCALE 7-10 (Severe Pantoprazole Sodium 40 mg 03/27/25 09:00 Pantoprazole Inj 40 Mg Vial IVP 04/26/25 08:59 QDAY [facility] Sennosides 1 tab 03/27/25 09:00 Senna Tablet PO 04/26/25 08:59 QDAY [facility] Protocol Sodium Chloride 3 ml 03/27/25 09:48 03/27/25 10:35 Sodium Chloride Rt Jennifer 0.9% 3 Ml Nebu INH 04/26/25 09:47 3 ml PRN PRN Administration SOLN Plan A 74-year-old female with no significant past medical history but has not seen a doctor for the last 15 years presented to the hospital with a chief complaint of shortness of breath, chest pain, and abdominal discomfort ongoing for 1 day and admitted ti the hospital for pulmonary thromboembolism. #Acute hypoxic respiratory failure #Pulmonary thromboembolism Presented to the hospital with chief complaints of shortness of breath and chest, abdominal discomfort since 1 day. Since yesterday evening, patient noted to have discomfort in the abdomen and chest discomfort, with radiation of the pain from the neck to right arm. Denied cough, hematemesis, hemoptysis Vitals at the time of admission were significant for blood pressure 154/91 mmHg, pulse rate 112 bpm, respiratory 24/min, SpO2 85% with 6 L oxygen Labs at the time of admission significant for AST 59, ALT 51, troponin 0.615, BNP 469 Chest x-ray at the time of admission did not show any significant abnormality Chest CTA showed significant pulmonary embolism burden, left side much greater than right with evidence of right heart strain EKG showed sinus tachycardia with no significant ST and T wave changes Dx: -03/26 venous doppler study ordered, showed extensive occlusive thrombus in the right lower extremity -03/26 echo ordered, showed ___ Rx: -s/p 03/27 thrombectomy -Cardiology may also do a 2nd thrombectomy for the occlusive thrombus of the RLE -IV heparin gtt -Supplemental O2 as needed -Cardiology (Dr. 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 Saez, and senior resident, Dr. Gulshan Tarango, DO PGY-1 Attending Provider Attestation/Addendum 74-year-old female with no significant past medical history presented with chief complaint of shortness of breath found to have acute hypoxic respiratory failure. In the ER, patient underwent CTA with significant pulmonary embolism with right heart strain. Further evaluated with lower extremity Doppler and found to have a extensive occlusive thrombus in the right lower extremity. Cardiology was consulted and patient underwent pulmonary thrombectomy and currently on a heparin drip. Continue to monitor the patient closely and appreciate cardiology input.I reviewed above note and agree with findings and plans. I have also personally examined the patient with medicine team and went over assessment and plan with medical team including tech intern and resident physician.
[2025-03-27 14:32] LABS: Partial Thromboplastin Time 30.6 Seconds (22.0-36.0)
--- NOTE | 2025-03-27 15:31 | PC.NURSE ---
at 1355. pt returned from laboratory machinist, received report from Christy at bedside
--- NOTE | 2025-03-27 15:58 | PC.NURSE ---
at 1535, called to confirmed with dr kraft restart of heparin gtt per protocol, per MD refer to pharmacy and floor team, per dr curtis, heparin gtt restarted per protocol at initial rate ptt 30.6
[2025-03-27 16:04] LABS: ACT (CATH LAB ONLY) 312.0 Seconds (89-169)
[2025-03-27] MEDS: Heparin/D5w 25K 250 ML Ivpb 25,000 UNIT/250 ML BAG 18 UNIT IV (16:15)
--- NOTE | 2025-03-27 18:11 | PC.NURSE ---
confirmed with STEPHEN thompson pt okay to sit 4 hours since prosthetic lab technician procedure
--- NOTE | 2025-03-27 19:42 | ESOP_ITS ---
Cardiac Cath Procedure Procedure Name Date of procedure: 03/27/2025 Procedures performed: 1. Computer assisted vacuum thrombectomy in left main and left upper and lower interlobar pulmonary arteries as well as the right lower lobe 2. Selective, bilateral pulmonary angiogram performed with selective catheter placement into both lower lobe pulmonary arteries 3. Physiological, pressure measurement in the pulmonary arteries: Mean PA, right and left pulmonary arteries-right heart cardiac catheterization 4. IVC and ipsilateral iliac venogram 5. Ultrasound guided venous access ? Right common femoral vein 6. Physiological pressure measurements in the right, left and main PA post- thrombectomy 7. Pulmonary angiogram post-thrombectomy selective right, selective left pulmonary arteries 8. Moderate conscious sedation for a total of 45 minutes 9. Purse string suture application for the right groin for hemostasis Procedure Narrative A 74-year-old female with a past medical history of morbid obesity with BMI greater than 40, osteoarthritis status post right knee replacement 15 years ago, does not follow-up with any doctors and last seen the doctors 15 years ago presented to the emergency department for further evaluation of worsening shortness of breath and some chest tightness that started yesterday evening. Workup included: Including CTA pulmonary embolism (PE) protocol that revealed Left > right PE with clot/filling defects in left main PA and left lobar arteries and right lower lobe artery. Right (R) heart strain evident on CTA. Labs revealed elevated troponins , BNP, ech showed right heart strain and pt was hypoxic requiring oxygen via nasal canula. Pt was risk stratified as intermediate high-risk/submassive high-risk PE. Plan ofcare is computer assisted vacuum thrombectomy (CAVT) of pulmonary embolus. Discussed again the risk- benefit and alternatives of performing the right heart catheter with pulmonary angiogram and possible mechanical thrombectomy based on the imaging. Explained the risk of bleeding, pulmonary hemorrhage, vascular complications, complication secondary to sedation, heart attack and even in detail. Patient agreeable for the procedure and provided consent for the same. Informed Consent Patient was placed supine on the table. R groin was prepped and draped in the usual sterile fashion.All elements of maximal barrier technique, including hat,mask, sterile gloves, sterile gown, sterile drape, and cutaneous antisepsis with 2% chlorhexidine, were achieved. Under real-time ultrasound guidance, the access site in the R Common Femoral vein (CFV) was accessed with amicro puncture needle. A micro-wire was advanced after the needle tip was visualized within the lumen of the vein.Using Seldinger technique, an 8 F sheath was placed into the vein.Ipsilateral iliac and IVC venogram performed through the CFV sheath. Venogram demonstrated Patent R common iliac and IVC. An angled pigtail catheter was used to cross the right side of the heart under fluoroscopy with EKG monitoring. With the catheter in the main pulmonary artery, physiological pulmonary arterial pressures were obtained (Systole/ Diastolic/Mean Pressure 42/16/29 mmHg) as documented.Pulmonary angiogram was then performed using hand injection with catheter replacement selectively in the R main and then in L main pulmonary artery. This demonstrated filling defects in R main, L main Pulmonary artery, R & L interlobar pulmonary arteries. Using a 6 F selective transitional catheter over a soft tip wire, R lower lobe pulmonary artery was catheterized and (1 cm) floppy tip Amplatz was placed. The sheath in the groin was upsized to a 16 F sheath after dilating the venotomy with serial dilators up to a 16 F. Sheath was aspirated for blood return and flushed with heparinized saline. A 16 F Lightning Flash? Catheter was advanced over the wire to R lower lobe pulmonary artery and aspiration thrombectomy was performed after removing the wire. Next, the contralateral pulmonary artery was accessedusing a pigtail catheter and prior steps were repeated. Catheter was then selectively placed in the L lower interlobar pulmonary artery to remove additional thrombus and additional aspiration thrombectomy was performed. Physiological pulmonary arterial pressures were measured post-thrombectomy (12/04/17). Selective R and L/main pulmonary angiogram was done with the pigtail catheter using an injector. The catheter, wire, and sheath were removed, and hemostasis was achieved by purse string suture. A 7 Palestinian sampling catheter was used in the to perform the right heart cardiac catheterization including the pressure measurements in the right atrium, right ventricle, mean pulmonary artery, right and left pulmonary arteries. RHC showed mean RA pressure of 3 mmHg, RV pressure of 27 or 8 mmHg, PA mean pressure of 24 mmHg in the wedge pressure of 5 mmHg. We then performed a pulmonary angiogram by placing the [place] catheter in the right main pulmonary artery, left main pulmonary artery as well as the lobar branches. We then used is 0.035 exchange length J-wire to exchanged to an Amplatz extra-stiff wire. We then upsized 7 Palestinian right femoral vein sheath with a 10 Palestinian to 14 Palestinian dilators and inserted the 17 Palestinian element vascular access system. Before we inserting the large-bore venous access patient was adequately anticoagulated with heparin bolus to keep the ACT greater than 250 throughout the procedure. We then introduced the lightening flash 100 cm catheter and slowly advanced it over the wire to the left main pulmonary artery and left lower lobe branch. Summary: 1. Successful mechanical thrombectomy performed to the left main pulmonary artery, left lower lobe pulmonary artery and left upper buplmonary artery, branches with penumbra with excellent results and no complications. 2. Improvement of the main pulmonary artery pressures noted post thrombectomy with mean PA pressure reduction from 33 to 25 mm hg. Recommendations: 1. Patient recommended to continue anticoagulation with heparin drip tonight and then should be transition to Eliquis twice daily as per the PE protocol if no further procedures are planned during the admission. 2. Recommend strict bedrest for the next 4 to 6 hours and HOB could be elevated at 30 degrees. 3. Plan to remove the purse string sutures in the morning if there is good hemostasis 4. Patient recommended to not lift more than 5 to 10 pounds for the next 7 to 10 days and follow-up with me in the office in 7 days. Management of rest of the medical conditions as per primary team and other consultants. Thank you for the consult and allowing me to participate in the care of the pa tient. Cardiology will continue to follow. Krish Trujillo M.D. Interventional Cardiology
[2025-03-27 23:09] LABS: Partial Thromboplastin Time 52.4 Seconds (22.0-36.0)
[2025-03-28] VITALS (9 sets, daily range): BP systolic 124–153; BP diastolic 70–97; PULSE 68–114; RESP 16–99; TEMP 36–36.7; O2SAT 94–100; BMI 47.0
[2025-03-28 06:15] LABS: Basophils # (Auto) 0.1 Thou/mm3 (0.0-0.2); Basophils % (Auto) 1 % (0-2.5); Eosinophils # (Auto) 0.4 Thou/mm3 (0.0-0.5); Eosinophils % (Auto) 5 % (0-10); Hematocrit 33.0 % (36.0-46.0); Hemoglobin 11.0 g/dL (12.0-16.0); Immature Granulocytes Auto 0.06 Thou/mm3 (0.00-0.00); Lymphocytes # (Auto) 2.7 Thou/mm3 (1.0-4.8); Lymphocytes % (Auto) 31 % (10-50); Mean Corpuscular HGB Conc 33.3 g/dl (31.0-37.0); Mean Corpuscular Hemoglobin 30.6 pg (25.0-35.0); Mean Corpuscular Volume 92 fL (80-100); Monocytes # (Auto) 1.0 Thou/mm3 (0.0-0.8); Monocytes % (Auto) 11 % (0-12); Neutrophils # (Auto) 4.5 Thou/mm3 (1.8-7.7); Neutrophils % (Auto) 52 % (37-80); Nucleated Red Blood Cell # 0.00 Thou/mm3 (0.00-0.00); Nucleated Red Blood Cell % 0 /100 WBC (0); Platelet Count 213 Thou/mm3 (140-440); RDW Standard Deviation 46.4 fL (36.4-46.3); Red Blood Count 3.59 Miln/mm3 (4.00-5.20); White Blood Count 8.7 Thou/mm3 (3.6-11.0)
[2025-03-28] MEDS: Heparin/D5w 25K 250 ML Ivpb 25,000 UNIT/250 ML BAG 18 UNIT IV (06:17)
[2025-03-28 06:26] LABS: Partial Thromboplastin Time 33.5 Seconds (22.0-36.0)
[2025-03-28 06:40] LABS: Alanine Aminotransferase 28 U/L (10-49); Albumin, Serum 3.8 gm/dL (3.4-4.8); Albumin/Globulin Ratio 2.1 (1.2-2.2); Alkaline Phosphatase 74 U/L (46-116); Anion Gap 11 (7-16); Aspartate Amino Transferase 29 U/L (0-34); BUN/Creatinine Ratio 17 Ratio (12-20); Bilirubin,Total 0.3 mg/dL (0.3-1.2); Blood Urea Nitrogen 12 mg/dL (9-23); Calcium 8.4 mg/dL (8.3-10.6); Calcium (Corrected) 8.6 mg/dL (8.5-10.1); Carbon Dioxide 24.3 mMol/L (20.0-31.0); Chloride 111 mMol/L (98-107); Creatinine (Component) 0.7 mg/dL (0.6-1.3); Estimated Creatinine Clearance 98.4 mL/min (>60); Globulin 1.8 gm/dL (2.3-3.5); Glucose 99 mg/dL (74-106); Osmolality,Calculated 290 (275-295); Potassium 3.5 mMol/L (3.4-5.1); Sodium 146 mMol/L (136-145); Total Protein 5.6 gm/dL (5.7-8.2); eGFR > 60 See Note
[2025-03-28] MEDS: HEPARIN SOD INJ 5000 UNIT/ML VIAL 8000 UNIT IV (07:52)
--- NOTE | 2025-03-28 08:26 | ESPR_ITS ---
Documentation for date of: 03/28/25 Subjective Subjective Interval history: The patient is a 74-year-old female with no significant past medical history who presented to the ED with chief complaints of shortness of breath and chest tightness. She also described mild, constant chest pain radiating to her right arm and back, rated 6 out of 10, but not associated with nausea or vomiting. The primary complaint was shortness of breath. The patient reported that her symptoms began the previous day while she was working in the kitchen. She slipped but managed to maintain her balance. Shortly after, she developed severe shortness of breath and chest tightness. Initially, she thought the symptoms would resolve, but they persisted overnight and progressively worsened, prompting her to seek medical attention in the ED. The patient denies any nausea, vomiting, abdominal pain, constipation, recent viral infections, or any other associated symptoms. She reports being generally healthy, not following a primary care provider, and has no history of hypertension, diabetes, or hyperlipidemia. She is fairly active at home and independent in her activities of daily living. Upon evaluation in the ED, the patient was found to be hypoxic, saturating 85% on room air, tachycardic with a heart rate of 112, blood pressure of 154/91, and a respiratory rate of 24. Initial labs showed an unremarkable CBC, mild transaminitis with AST 59 and ALT 51, elevated troponin at 0.615, and BNP of 469. Chest x-ray was unremarkable. EKG revealed normal sinus rhythm w/o specific PE findings A CTA was performed, which showed a significant pulmonary embolism burden, with the left-sided embolism much greater than the right, and evidence of right heart strain. The patient was given sublingual nitroglycerin, a loading dose of aspirin, and morphine in the ED. A heparin drip was initiated. The patient was admitted for treatment and management of acute pulmonary embolism and possible acute coronary syndrome . 03/27/2025: Patient was seen and examined at bedside. No acute overnight events. Labs are stable, Troponin downtrending, patient is NPO . Plan is CAVT of pulmonary embolus. Yesterday we discussed the risk-benefit and alternatives Explained the risk of bleeding, pulmonary hemorrhage, vascular complications, complication secondary to sedation, heart attack and even in detail. Patient agreeable for the procedure and provided consent. The whole team was present. US of LE was performed, positive for DVT :there is noncompressible occlusive thrombus in the femoral vein from proximal to distal as well as the popliteal, peroneal and posterior tibial veins. After CAVT continue heparin drip, continue hep infusion until catheter entry site is evaluated to ensure there is no bleeding or hematoma formation. On discharge patient can be transitioned to eliquise 03/28/25: Patient was seen and examined at bedside. No acute overnight events. Patient is saturating 94% in room air, SOB and chest pressure has resolved. Overall stated that she feels better now. currently on Heparin drip,Stiches were removed, Hgb has been stable, No signs of acute bleeding, can be transitioned to PO Eliquis as per PE protocol. Exam Vital Signs Temp Pulse Resp BP Pulse Ox O2 Del Method O2 Flow Rate 97.2 F 81 24 H 124/70 94 L Room Air 2 03/28/25 07:48 03/28/25 07:48 03/28/25 07:48 03/28/25 07:48 03/28/25 07:48 03/28/25 07:48 03/28/25 04:00 Narrative Exam GENERAL: no acute distress, AAO x3, well nourished. HEENT: Head AT/ NC. Mucous membranes moist. PERRL. NECK: Supple, no lymphadenopathy, no carotid bruits. CARDIOVASCULAR: RRR. Normal S1/S2, No m/r/g. No pitting edema of bilateral LEs. RESPIRATORY: CTAB. No wheezing, rhonchi, crackles. GASTROINTESTINAL: Abdomen soft, non tender no palpable masses. Bowel sounds present in all 4 quadrants. MUSCULOSKELETAL:? No cyanosis or edema, no visible joint swelling. NEUROLOGICAL: CN II-XII grossly intact. No focal deficits. Sensation intact, symmetric. PSYCHIATRIC: Awake and alert, not agitated, normal mood and affect. INTEGUMENTARY: No obvious rashes, no jaundice, normal turgor. Objective Labs 03/28/25 13:30 03/28/25 05:40 Labs: Laboratory Results - last 24 hr 03/27/25 03/27/25 03/27/25 05:39 10:39 14:03 WBC 10.1 RBC 3.99 L Hgb 12.0 Hct 36.8 MCV 92 MCH 30.1 MCHC 32.6 RDW Std Deviation 47.9 H Plt Count 216 D Neut % (Auto) 58 Lymph % (Auto) 28 [place] % (Auto) 10 Eos % (Auto) 3 Baso % (Auto) 1 Neut # (Auto) 5.9 Lymph # (Auto) 2.8 [place] # (Auto) 1.0 H Eos # (Auto) 0.3 Baso # (Auto) 0.1 Immature Gran # (Auto) 0.04 H Absolute Nucleated RBC 0.00 Immature Gran % 0 Nucleated RBC % 0 APTT 30.6 D Activated Clotting Time 312.0 H Sodium Potassium Chloride Carbon Dioxide Anion Gap BUN Creatinine Estim Creat Clear Calc eGFR BUN/Creatinine Ratio Glucose Calculated Osmolality Calcium Corrected Calcium Total Bilirubin AST ALT Alkaline Phosphatase Total Protein Albumin Globulin Albumin/Globulin Ratio 03/27/25 03/28/25 22:08 05:40 WBC 8.7 RBC 3.59 L Hgb 11.0 L Hct 33.0 L MCV 92 MCH 30.6 MCHC 33.3 RDW Std Deviation 46.4 H Plt Count 213 Neut % (Auto) 52 Lymph % (Auto) 31 [place] % (Auto) 11 Eos % (Auto) 5 Baso % (Auto) 1 Neut # (Auto) 4.5 Lymph # (Auto) 2.7 [place] # (Auto) 1.0 H Eos # (Auto) 0.4 Baso # (Auto) 0.1 Immature Gran # (Auto) 0.06 H Absolute Nucleated RBC 0.00 Immature Gran % 1 H Nucleated RBC % 0 APTT 52.4 H D 33.5 D Activated Clotting Time Sodium 146 H Potassium 3.5 Chloride 111 H Carbon Dioxide 24.3 Anion Gap 11 BUN 12 Creatinine 0.7 Estim Creat Clear Calc 98.4 eGFR > 60 BUN/Creatinine Ratio 17 Glucose 99 Calculated Osmolality 290 Calcium 8.4 Corrected Calcium 8.6 Total Bilirubin 0.3 AST 29 ALT 28 Alkaline Phosphatase 74 Total Protein 5.6 L Albumin 3.8 Globulin 1.8 L Albumin/Globulin Ratio 2.1 Quality Measures Quality Measures VTE prophylaxis and none Advance care planning discussed with:: patient Assessment & Plan Assessment Current Active Medications: Generic Name Dose Route Start Last Admin Trade Name Freq PRN Reason Stop Dose Admin Acetaminophen 650 mg 03/26/25 17:17 Acetaminophen 325 Mg Tablet PO 04/25/25 17:16 Q6H PRN Fever >101.5 Heparin Sodium/Dextrose 25,000 unit in 250 mls @ 18.841 mls/hr 03/27/25 16:15 03/28/25 07:53 Heparin In D5w Ivpb IV 04/10/25 16:14 17.64 units/kg/hr .[id number] MAHIN 23.284 mls/hr Protocol Titration 14.2744 UNITS/KG/HR Morphine Sulfate 2 mg 03/26/25 17:17 Morphine Sulf Inj 4 Mg/Ml Vial IVP 03/31/25 17:16 Q6HR PRN PAIN SCALE 7-10 (Severe Pantoprazole Sodium 40 mg 03/27/25 09:00 03/27/25 15:05 Pantoprazole Inj 40 Mg Vial IVP 04/26/25 08:59 Not Given QDAY [facility] Sennosides 1 tab 03/27/25 09:00 03/27/25 15:05 Senna Tablet PO 04/26/25 08:59 Not Given QDAY MAHIN Protocol Sodium Chloride 3 ml 03/27/25 09:48 03/27/25 10:35 Sodium Chloride Rt Jennifer 0.9% 3 Ml Nebu INH 04/26/25 09:47 3 ml PRN PRN Administration SOLN Plan 74-year-old female without past medical history was admitted for acute coronary syndrome/non-STEMI type I treatment and management. Cardiology was consulted for further recommendations and management. #Acute bilateral pulmonary embolism-left greater than right with right heart strain s/p CAVT on 03/27/25 #Acute hypoxic respiratory failure in the setting of acute bilateral pulmonary embolis-resolved Patient presented with chief complaints of pleuritic chest pain, and hypoxia CTA revealed significant pulmonary embolism burden with left-sided being much more affected than the right. With evidence of right heart strain. Patient presented with shortness of breath, hypoxia, tachycardia Clinical presentation is likely secondary due to acute PE EKG revealed normal sinus without specific PE findings CAVT on 03/27/25: Summary: 1. Successful mechanical thrombectomy performed to the left main pulmonary artery, left lower lobe pulmonary artery and left upper buplmonary artery, branches with penumbra with excellent results and no complications. 2. Improvement of the main pulmonary artery pressures noted post thrombectomy with mean PA pressure reduction from 33 to 25 mm hg. -Stiches were removed, No local hematoma, Hbg has been stable, no signs of bleeding -Patient recommended to continue anticoagulation with Eliquis twice daily as per the PE protocol -Recommend strict bedrest for the next 4 to 6 hours and HOB could be elevated at 30 degrees. -Patient recommended to not lift more than 5 to 10 pounds for the next 7 to 10 days and follow-up with me in the office in 7 days. -obtain ECHO #Non-STEMI type II Also the PE likely explains the patient's clinical picture. elevated troponis most likely secondary to demand ischamia Patient presented with chest tightness, shortness of breath, mild chest pain radiating to the right arm and back, associated with deep breathing Elevated troponin 0.615 and BNP 469, along with tachycardia, hypoxia Patient does not have any known history of coronary artery disease, no history of hypertension, diabetes or hyperlipidemia. However her age and acute presentation concerning for underlying atherosclerotic disease - telemetry for close monitoring - Patient was given loading dose of aspirin, continue with daily dose 81 mg daily - Start high intensity atorvastatin - Continue supplementing oxygen to maintain O2 saturation above 94 - Management of risk factors such as hypertension, hyperglycemia, and stress reduction - coronary angiography will be needed in a future given the high risk of atherosclerotic disease - Keep potassium above 4, magnesium above 2 #Occlusive DVT US of LE was performed, positive for DVT :there is noncompressible occlusive thrombus in the femoral vein from proximal to distal as well as the popliteal, peroneal and posterior tibial veins. -continue hep drip -on DC transition to eliquise. #Mildly elevated LFTs-resolved # Morbid obesity with BMI greater than 40 # Osteoarthritis status post right knee displacement 15 years ago # Does not follow doctors for the last 15 years # Anemia( postprosedur), monitor H&H, currently stable Patient care was discussed with attending physician Dr. Cassandra Moore MD PGY-3 I have carefully reviewed this document. Due to imperfections in the voice software, there could be grammatical errors including phonetic/typographic errors. This in no way compromises the medical care the patient is receiving Attending Provider Attestation/Addendum I have personally seen and examined the patient separately on the above date of service and discussed the plan of care with the resident. I reviewed the resident Dr. Radha Fatima consultation progress note and agree with the resident findings and plan in the note above and have also edited the documentation to reflect my findings and plan. Krish Trujillo M.D. Interventional Cardiology
--- NOTE | 2025-03-28 08:59 | PC.SS ---
Update: Cardiology recommendations are pending.
[2025-03-28] MEDS: POTASSIUM CHLORIDE 10% 20 MEQ/15 ML UDC 40 MEQ PO (10:22)
[2025-03-28 14:05] LABS: Hematocrit 35.6 % (36.0-46.0); Hemoglobin 11.5 g/dL (12.0-16.0)
[2025-03-28 14:13] LABS: Partial Thromboplastin Time > 139.0 Seconds (22.0-36.0)
[2025-03-28] MEDS: APIXABAN 2.5 MG TABLET 10 MG PO ×2 (14:31→20:42)
--- NOTE | 2025-03-28 14:35 | ESPR_ITS ---
<Statement entered by Enio Saez MD - 04/11/25 07:51> I reviewed above note and agree with findings and plans. I have also personally examined the patient with medicine team and went over assessment and plan with medical team including exercise science internship and resident physician. <Statement entered by Lucia Gaffney MD - 03/28/25 16:30> Patient was seen and examined by me personally. I have directly supervised and reviewed documentation by the team resident and agree with its findings with any exceptions or additional findings as below. Plan of care was discussed with the attending, Dr. Saez. Patient doing well after thrombectomy yesterday, vitals stable, on room air. Repeat H&H requested by cardiology team due to drop in Hgb from 12.0 to 11.0, came back 11.5. No evidence of hematoma on physical examination. Patient transitioned to Eliquis 10 mg BID. Anticipate discharge tomorrow. Lucia Gaffney, PGY-3 Documentation for date of: 03/28/25 Subjective Subjective Interval history: No overnight events. Patient was examined at bedside; they appear A&Ox3 and in NAD (bedside echocardiogram ongoing at time of interview). Today, she reports breathing well and denied any chest or leg pain. Vitals/labs today significant for Hgb 12.0->11.0, sodium 145->146, potassium 3.5. Repeat H&H requested by Cardiology came back at 11.5. Physical exam significant for bilateral nonpitting edema lower extremities (unchanged from days prior) and was negative for erythema or pain of the legs or any evidence of hematoma. Per Cardiology, patient will not be undergoing thrombectomy for the RLE thrombus seen on 03/26 venous doppler study and is to be transitioned from heparin gtt to Eliquis 10 mg PO BID today. She is anticipated to be discharged tomorrow. Exam Vital Signs Temp Pulse Resp BP Pulse Ox O2 Del Method O2 Flow Rate 97.6 F 92 24 H 126/70 100 Room Air 2 03/28/25 12:00 03/28/25 12:00 03/28/25 12:00 03/28/25 12:00 03/28/25 12:00 03/28/25 12:00 03/28/25 04:00 Narrative Exam General: Awake. obese HEENT: Normocephalic, atraumatic, mucous membranes moist. Heart: Regular rate and rhythm, no murmurs. Lungs: Clear to auscultation with no wheezing or crackles. Abdomen: Soft, nondistended, nontender, positive bowel sounds. ?No guarding or rebound tenderness. Neurologic: Alert and oriented x3, no gross neurological deficit, and patient able to move all 4 extremities. Extremities: Bilateral 2+ non-pitting edema. No erythema or pain to squeezing of bilateral legs. Skin: No rash or ecchymoses. No evidence of hematoma. Objective Labs 03/28/25 13:30 03/28/25 05:40 Labs: Laboratory Results - last 24 hr 03/27/25 03/27/25 03/27/25 10:39 14:03 22:08 WBC RBC Hgb Hct MCV MCH MCHC RDW Std Deviation Plt Count Neut % (Auto) Lymph % (Auto) [place] % (Auto) Eos % (Auto) Baso % (Auto) Neut # (Auto) Lymph # (Auto) [place] # (Auto) Eos # (Auto) Baso # (Auto) Immature Gran # (Auto) Absolute Nucleated RBC Immature Gran % Nucleated RBC % APTT 30.6 D 52.4 H D Activated Clotting Time 312.0 H Sodium Potassium Chloride Carbon Dioxide Anion Gap BUN Creatinine Estim Creat Clear Calc eGFR BUN/Creatinine Ratio Glucose Calculated Osmolality Calcium Corrected Calcium Total Bilirubin AST ALT Alkaline Phosphatase Total Protein Albumin Globulin Albumin/Globulin Ratio 03/28/25 03/28/25 05:40 13:30 WBC 8.7 RBC 3.59 L Hgb 11.0 L 11.5 L Hct 33.0 L 35.6 L MCV 92 MCH 30.6 MCHC 33.3 RDW Std Deviation 46.4 H Plt Count 213 Neut % (Auto) 52 Lymph % (Auto) 31 [place] % (Auto) 11 Eos % (Auto) 5 Baso % (Auto) 1 Neut # (Auto) 4.5 Lymph # (Auto) 2.7 [place] # (Auto) 1.0 H Eos # (Auto) 0.4 Baso # (Auto) 0.1 Immature Gran # (Auto) 0.06 H Absolute Nucleated RBC 0.00 Immature Gran % 1 H Nucleated RBC % 0 APTT 33.5 D > 139.0 H* D Activated Clotting Time Sodium 146 H Potassium 3.5 Chloride 111 H Carbon Dioxide 24.3 Anion Gap 11 BUN 12 Creatinine 0.7 Estim Creat Clear Calc 98.4 eGFR > 60 BUN/Creatinine Ratio 17 Glucose 99 Calculated Osmolality 290 Calcium 8.4 Corrected Calcium 8.6 Total Bilirubin 0.3 AST 29 ALT 28 Alkaline Phosphatase 74 Total Protein 5.6 L Albumin 3.8 Globulin 1.8 L Albumin/Globulin Ratio 2.1 Quality Measures Quality Measures VTE prophylaxis and none Advance care planning discussed with:: patient Assessment & Plan Assessment Current Active Medications: Generic Name Dose Route Start Last Admin Trade Name Freq PRN Reason Stop Dose Admin Acetaminophen 650 mg 03/26/25 17:17 Acetaminophen 325 Mg Tablet PO 04/25/25 17:16 Q6H PRN Fever >101.5 Apixaban 10 mg 03/28/25 13:45 03/28/25 14:31 Apixaban 2.5 Mg Tablet PO 04/03/25 21:01 10 mg BID MAHNI Administration Morphine Sulfate 2 mg 03/26/25 17:17 Morphine Sulf Inj 4 Mg/Ml Vial IVP 03/31/25 17:16 Q6HR PRN PAIN SCALE 7-10 (Severe Pantoprazole Sodium 40 mg 03/29/25 09:00 Pantoprazole 40 Mg Tablet PO 04/28/25 08:59 QDAY MAHIN Sennosides 1 tab 03/27/25 09:00 03/28/25 10:22 Senna Tablet PO 04/26/25 08:59 1 tab QDAY MAHIN Administration Protocol Sodium Chloride 3 ml 03/27/25 09:48 03/27/25 10:35 Sodium Chloride Rt Jennifer 0.9% 3 Ml Nebu INH 04/26/25 09:47 3 ml PRN PRN Administration SOLN Plan A 74-year-old female with no significant past medical history but has not seen a doctor for the last 15 years presented to the hospital with a chief complaint of shortness of breath, chest pain, and abdominal discomfort ongoing for 1 day and admitted ti the hospital for pulmonary thromboembolism. #Acute hypoxic respiratory failure #Pulmonary thromboembolism Presented to the hospital with chief complaints of shortness of breath and chest, abdominal discomfort since 1 day. Since yesterday evening, patient noted to have discomfort in the abdomen and chest discomfort, with radiation of the pain from the neck to right arm. Denied cough, hematemesis, hemoptysis Vitals at the time of admission were significant for blood pressure 154/91 mmHg, pulse rate 112 bpm, respiratory 24/min, SpO2 85% with 6 L oxygen Labs at the time of admission significant for AST 59, ALT 51, troponin 0.615, BNP 469 Chest x-ray at the time of admission did not show any significant abnormality Chest CTA showed significant pulmonary embolism burden, left side much greater than right with evidence of right heart strain EKG showed sinus tachycardia with no significant ST and T wave changes Dx: -03/26 venous doppler study ordered, showed extensive occlusive thrombus in the right lower extremity -03/26 echo ordered, showed ___ Rx: -s/p 03/27 thrombectomy -Eliquis 10 mg PO BID -Supplemental O2 as needed (will also discharge with home O2) -Cardiology (Dr. 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 Saez, and senior resident, Dr. Gulshan Tarango, DO PGY-1
--- NOTE | 2025-03-28 16:07 | PC.SS ---
Rounding Note: Cardiology recommendations are pending.
[2025-03-29] VITALS: BP 116/60; PULSE 79; PULSE 89; RESP 20; TEMP 35.9; O2SAT 97
[2025-03-29 04:00] VITALS: BP 126/56; PULSE 75; PULSE 76; RESP 22; TEMP 35.9; O2SAT 96
[2025-03-29 05:59] VITALS: BMI 47.0
[2025-03-29 06:22] LABS: Basophils # (Auto) 0.1 Thou/mm3 (0.0-0.2); Basophils % (Auto) 1 % (0-2.5); Eosinophils # (Auto) 0.5 Thou/mm3 (0.0-0.5); Eosinophils % (Auto) 6 % (0-10); Hematocrit 33.0 % (36.0-46.0); Hemoglobin 10.8 g/dL (12.0-16.0); Immature Granulocytes Auto 0.04 Thou/mm3 (0.00-0.00); Lymphocytes # (Auto) 2.7 Thou/mm3 (1.0-4.8); Lymphocytes % (Auto) 35 % (10-50); Mean Corpuscular HGB Conc 32.7 g/dl (31.0-37.0); Mean Corpuscular Hemoglobin 30.3 pg (25.0-35.0); Mean Corpuscular Volume 92 fL (80-100); Monocytes # (Auto) 0.9 Thou/mm3 (0.0-0.8); Monocytes % (Auto) 12 % (0-12); Neutrophils # (Auto) 3.6 Thou/mm3 (1.8-7.7); Neutrophils % (Auto) 46 % (37-80); Nucleated Red Blood Cell # 0.00 Thou/mm3 (0.00-0.00); Nucleated Red Blood Cell % 0 /100 WBC (0); Platelet Count 227 Thou/mm3 (140-440); RDW Standard Deviation 46.5 fL (36.4-46.3); Red Blood Count 3.57 Miln/mm3 (4.00-5.20); White Blood Count 7.7 Thou/mm3 (3.6-11.0)
[2025-03-29 06:42] LABS: Glucose Estimated Average 103 mg/dL (80-131); Hemoglobin A1C 5.2 % Hgb (4.8-6.0)
[2025-03-29 06:46] LABS: Alanine Aminotransferase 23 U/L (10-49); Albumin, Serum 3.7 gm/dL (3.4-4.8); Albumin/Globulin Ratio 1.8 (1.2-2.2); Alkaline Phosphatase 75 U/L (46-116); Anion Gap 9 (7-16); Aspartate Amino Transferase 25 U/L (0-34); BUN/Creatinine Ratio 19 Ratio (12-20); Bilirubin,Total 0.3 mg/dL (0.3-1.2); Blood Urea Nitrogen 15 mg/dL (9-23); Calcium 8.5 mg/dL (8.3-10.6); Calcium (Corrected) 8.7 mg/dL (8.5-10.1); Carbon Dioxide 26.2 mMol/L (20.0-31.0); Chloride 111 mMol/L (98-107); Creatinine (Component) 0.8 mg/dL (0.6-1.3); Estimated Creatinine Clearance 86.1 mL/min (>60); Globulin 2.1 gm/dL (2.3-3.5); Glucose 88 mg/dL (74-106); Osmolality,Calculated 290 (275-295); Potassium 4.2 mMol/L (3.4-5.1); Sodium 146 mMol/L (136-145); Total Protein 5.8 gm/dL (5.7-8.2); eGFR > 60 See Note
[2025-03-29 08:00] VITALS: BP 126/85; PULSE 78; PULSE 95; RESP 22; TEMP 36.3; O2SAT 97
[2025-03-29 09:00] VITALS: PULSE 78; RESP 22; RESP 97; O2SAT 97
--- NOTE | 2025-03-29 09:09 | ESPR_ITS ---
Documentation for date of: 03/29/25 Subjective Subjective Interval history: The patient is a 74-year-old female with no significant past medical history who presented to the ED with chief complaints of shortness of breath and chest tightness. She also described mild, constant chest pain radiating to her right arm and back, rated 6 out of 10, but not associated with nausea or vomiting. The primary complaint was shortness of breath. The patient reported that her symptoms began the previous day while she was working in the kitchen. She slipped but managed to maintain her balance. Shortly after, she developed severe shortness of breath and chest tightness. Initially, she thought the symptoms would resolve, but they persisted overnight and progressively worsened, prompting her to seek medical attention in the ED. The patient denies any nausea, vomiting, abdominal pain, constipation, recent viral infections, or any other associated symptoms. She reports being generally healthy, not following a primary care provider, and has no history of hypertension, diabetes, or hyperlipidemia. She is fairly active at home and independent in her activities of daily living. Upon evaluation in the ED, the patient was found to be hypoxic, saturating 85% on room air, tachycardic with a heart rate of 112, blood pressure of 154/91, and a respiratory rate of 24. Initial labs showed an unremarkable CBC, mild transaminitis with AST 59 and ALT 51, elevated troponin at 0.615, and BNP of 469. Chest x-ray was unremarkable. EKG revealed normal sinus rhythm w/o specific PE findings A CTA was performed, which showed a significant pulmonary embolism burden, with the left-sided embolism much greater than the right, and evidence of right heart strain. The patient was given sublingual nitroglycerin, a loading dose of aspirin, and morphine in the ED. A heparin drip was initiated. The patient was admitted for treatment and management of acute pulmonary embolism and possible acute coronary syndrome . 03/27/2025: Patient was seen and examined at bedside. No acute overnight events. Labs are stable, Troponin downtrending, patient is NPO . Plan is CAVT of pulmonary embolus. Yesterday we discussed the risk-benefit and alternatives Explained the risk of bleeding, pulmonary hemorrhage, vascular complications, complication secondary to sedation, heart attack and even in detail. Patient agreeable for the procedure and provided consent. The whole team was present. US of LE was performed, positive for DVT :there is noncompressible occlusive thrombus in the femoral vein from proximal to distal as well as the popliteal, peroneal and posterior tibial veins. After CAVT continue heparin drip, continue hep infusion until catheter entry site is evaluated to ensure there is no bleeding or hematoma formation. On discharge patient can be transitioned to eliquise 03/28/25: Patient was seen and examined at bedside. No acute overnight events. Patient is saturating 94% in room air, SOB and chest pressure has resolved. Overall stated that she feels better now. currently on Heparin drip,Stiches were removed, Hgb has been stable, No signs of acute bleeding, can be transitioned to PO Eliquis as per PE protocol. 03/29/25:Patient was seen and examined. No acute overnight events. Vitals are stable. Slight drop in hemoglobin levels, but suspect it might be due to hemodilution. No signs or symptoms of bleeding, Catheter entry site is clean and dry.Continues to be on a room air, Denies any chest pain, SOB, palpitation, dizziness or any other symptoms. it might be reasonable to repeat the H&H levels. If remain stable and there are no other acute concerns, discharge home. Counceled the patient regarding blood thinners, such as unexpected or prolonged bleeding, including nosebleeds, gum bleeding, or bruising. If she notice any signs of serious bleeding, like coughing up blood, passing blood in your stool, or experiencing dizziness, seek medical help immediately. Follow up with PCP and Dr. Trujillo in 1-2 weeks after discharge. Exam Vital Signs Temp Pulse Resp BP Pulse Ox O2 Del Method O2 Flow Rate 97.4 F 78 22 H 126/85 H 97 Room Air 2 03/29/25 08:00 03/29/25 08:00 03/29/25 08:00 03/29/25 08:00 03/29/25 08:00 03/29/25 08:00 03/28/25 04:00 Narrative Exam GENERAL: no acute distress, AAO x3, well nourished. HEENT: Head AT/ NC. Mucous membranes moist. PERRL. NECK: Supple, no lymphadenopathy, no carotid bruits. CARDIOVASCULAR: RRR. Normal S1/S2, No m/r/g. No pitting edema of bilateral LEs. RESPIRATORY: CTAB. No wheezing, rhonchi, crackles. GASTROINTESTINAL: Abdomen soft, non tender no palpable masses. Bowel sounds present in all 4 quadrants. MUSCULOSKELETAL:? No cyanosis or edema, no visible joint swelling. R inguinal catheter entry site is clean and dry, no signs of bruising or hematoma. NEUROLOGICAL: CN II-XII grossly intact. No focal deficits. Sensation intact, symmetric. PSYCHIATRIC: Awake and alert, not agitated, normal mood and affect. INTEGUMENTARY: No obvious rashes, no jaundice, normal turgor. Objective Labs 03/29/25 04:54 03/29/25 04:54 Labs: Laboratory Results - last 24 hr 03/28/25 03/29/25 13:30 04:54 WBC 7.7 RBC 3.57 L Hgb 11.5 L 10.8 L Hct 35.6 L 33.0 L MCV 92 MCH 30.3 MCHC 32.7 RDW Std Deviation 46.5 H Plt Count 227 Neut % (Auto) 46 Lymph % (Auto) 35 [place] % (Auto) 12 Eos % (Auto) 6 Baso % (Auto) 1 Neut # (Auto) 3.6 Lymph # (Auto) 2.7 [place] # (Auto) 0.9 H Eos # (Auto) 0.5 Baso # (Auto) 0.1 Immature Gran # (Auto) 0.04 H Absolute Nucleated RBC 0.00 Immature Gran % 1 H Nucleated RBC % 0 APTT > 139.0 H* D Sodium 146 H Potassium 4.2 D Chloride 111 H Carbon Dioxide 26.2 Anion Gap 9 BUN 15 Creatinine 0.8 Estim Creat Clear Calc 86.1 eGFR > 60 BUN/Creatinine Ratio [address] Glu mg/dL 103 Hemoglobin A1c 5.2 Calculated Osmolality 290 Calcium 8.5 Corrected Calcium 8.7 Total Bilirubin 0.3 AST 25 ALT 23 Alkaline Phosphatase 75 Total Protein 5.8 Albumin 3.7 Globulin 2.1 L Albumin/Globulin Ratio 1.8 Quality Measures Quality Measures VTE prophylaxis and none Advance care planning discussed with:: patient Assessment & Plan Assessment Current Active Medications: Generic Name Dose Route Start Last Admin Trade Name Freq PRN Reason Stop Dose Admin Acetaminophen 650 mg 03/26/25 17:17 Acetaminophen 325 Mg Tablet PO 04/25/25 17:16 Q6H PRN Fever >101.5 Apixaban 10 mg 03/28/25 13:45 03/28/25 20:42 Apixaban 2.5 Mg Tablet PO 04/03/25 21:01 10 mg BID MAHIN Administration Morphine Sulfate 2 mg 03/26/25 17:17 Morphine Sulf Inj 4 Mg/Ml Vial IVP 03/31/25 17:16 Q6HR PRN PAIN SCALE 7-10 (Severe Pantoprazole Sodium 40 mg 03/29/25 09:00 Pantoprazole 40 Mg Tablet PO 04/28/25 08:59 QDAY MAHIN Sennosides 1 tab 03/27/25 09:00 03/28/25 10:22 Senna Tablet PO 04/26/25 08:59 1 tab QDAY MAHIN Administration Protocol Sodium Chloride 3 ml 03/27/25 09:48 03/27/25 10:35 Sodium Chloride Rt Jennifer 0.9% 3 Ml Nebu INH 04/26/25 09:47 3 ml PRN PRN Administration SOLN Plan 74-year-old female without past medical history was admitted for acute coronary syndrome/non-STEMI type I treatment and management. Cardiology was consulted for further recommendations and management. #Acute bilateral pulmonary embolism-left greater than right with right heart strain s/p CAVT on 03/27/25 #Acute hypoxic respiratory failure in the setting of acute bilateral pulmonary embolis-resolved CTA revealed significant pulmonary embolism burden with left-sided being much more affected than the right. With evidence of right heart strain. Patient presented with shortness of breath, hypoxia, tachycardia CAVT on 03/27/25: Summary: 1. Successful mechanical thrombectomy performed to the left main pulmonary artery, left lower lobe pulmonary artery and left upper buplmonary artery, branches with penumbra with excellent results and no complications. 2. Improvement of the main pulmonary artery pressures noted post thrombectomy with mean PA pressure reduction from 33 to 25 mm hg. -Stiches were removed, No local hematoma, no signs of bleeding, Cath entry site is clean and dry, no signs of hematoma or bruises -Patient recommended to continue anticoagulation with Eliquis twice daily as per the PE protocol -Recommend strict bedrest for the next 4 to 6 hours and HOB could be elevated at 30 degrees. -Patient recommended to not lift more than 5 to 10 pounds for the next 7 to 10 days and follow-up with me in the office in 7 days. Echo: postprosedure: Summary 1. Left ventricle size is normal and systolic function is normal. Estimated ejection fraction is 60-65%. There is grade I diastolic dysfunction. 2. Right ventricle chamber size is mildly enlarged and systolic function is normal. Estimated RVSP around 40 mmHg. Flattening of the septum during diastole indicating pressure overload. Mild RV strain. 3. There is trace mitral valve regurgitation. 4. There is mild tricuspid valve regurgitation. 5. No pericardial effusion. #Occlusive DVT US of LE: positive for DVT :there is noncompressible occlusive thrombus in the femoral vein from proximal to distal as well as the popliteal, peroneal and posterior tibial veins. -Continue ELequise. Risk factor assestment: No recent surgery, trauma, prolonged travel, hospitalization preceding the event. Denies any use of estrogen containing medication No personal or FX of clothing No known hx of malignansy( never followed doctors and needs age appropriate screening) BMI 47, which is mild chronic risk factor Overall presentation suggests an unprovoked PE , possible related to Obesit. # Non-STEMI type II demand ischemia # Mildly elevated LFTs-resolved # Morbid obesity with BMI greater than 40 # Osteoarthritis status post right knee displacement 15 years ago # Does not follow doctors for the last 15 years # Anemia( postprosedur), monitor H&H, currently stable Patient care was discussed with attending physician Dr. Cassandra Moore MD PGY-3 I have carefully reviewed this document. Due to imperfections in the voice software, there could be grammatical errors including phonetic/typographic errors. This in no way compromises the medical care the patient is receiving Attending Provider Attestation/Addendum I have personally seen and examined the patient separately on the above date of service and discussed the plan of care with the resident. I reviewed the resident Radha Fatima consultation progress note and agree with the resident findings and plan in the note above and have also edited the documentation to reflect my findings and plan. Krish Trujillo M.D. Interventional Cardiology
[2025-03-29 09:31] VITALS: BMI 46.7
[2025-03-29] MEDS: PANTOPRAZOLE 40 MG TABLET PO (09:54)
[2025-03-29] MEDS: APIXABAN 2.5 MG TABLET 10 MG PO (09:54)
--- NOTE | 2025-03-29 10:26 | ESDS_ITS ---
<Statement entered by Enio Saez MD - 04/11/25 07:54> I reviewed above note and agree with findings and plans. I have also personally examined the patient with medicine team and went over assessment and plan with medical team including physician/internist and resident physician. <Statement entered by Lucia Gaffney MD - 03/29/25 16:55> Patient was seen and examined by me personally. I have reviewed the below documentation by the team resident and agree with its findings with any exceptions as below. Discharge plan was discussed with the attending, Dr. Saez. Patient discharged home today, instructed to follow up with a PCP, can follow up at [facility]. Lucia Gaffney, PGY-3 Planned Discharge Date 03/29/25 DS: Providers Provider Date of admission: 03/26/25 18:39 Primary care physician: Loreto Saul([facility])SARAH Admitting Provider: Liza Ochoa MD Attending Provider on Admission: Enio Saez MD Attending Provider on DC: Enio Saez MD Discharging Provider: Terrance Tarango MD DS: Diagnosis Problem List Completed Was Problem List Reviewed/Reconciled?: Yes Hospital Course Hospital Course Hospital course: Summary: A 74-year-old female with no significant past medical history but has not seen a doctor for the last 15 years presented to the hospital with a chief complaint of shortness of breath, chest pain, and abdominal discomfort ongoing for 1 day and admitted to the hospital for pulmonary thromboembolism. Hospital: During patient's hospital course, she was treated with heparin gtt and underwent thrombectomy on 03/27 for a significant pulmonary embolism causing right heart strain. She was then transitioned to Eliquis 10 mg PO BID. An 03/26 venous doppler study showed extensive occlusive thrombus in the right lower extremity but no thrombectomy was performed for this (medical management only). By 03/29, patient was deemed clinically stabilized and discharged home with home O2 and instructions to continue the Eliquis. Patient is safe to discharge. Further discharge instructions below. Discharge Recommendations: -Follow up with PCP within 1 week of discharge -Follow up with Cardiology Dr. Trujillo in 1 week -Patient recommended to continue anticoagulation with Eliquis twice daily as per the PE protocol ?10 mg twice daily for 1 week, followed by 5 mg twice daily for at least 3 months (please follow up with your primary doctor to rewew prescription) -Continue rest of medications as previously prescribed -Return to the ED or call EMS if symptoms return and/or worsen. #Acute hypoxic respiratory failure #Pulmonary thromboembolism #Normocytic anemia #NSTEMI, type II #Mild transaminitis #Hypertension Status at Discharge Cognitive/Behavioral Status at Discharge: stable Functional Status at Discharge: independent ambulation Overall Status at Discharge: patient is back to baseline Patient's care plan was discussed with my attending, Dr. Saez, and senior resident, Dr. Gaffney. Terrance Tarango, DO Internal Medicine, PGY-1 Time Spent with Patient Time attestation: Total time spent providing and/or coordinating discharge services: Time spent: Greater than 30 minutes Exam Vital Signs Temp Pulse Resp BP Pulse Ox O2 Del Method O2 Flow Rate 97.4 F 78 22 H 126/85 H 97 Room Air 2 03/29/25 08:00 03/29/25 09:00 03/29/25 09:00 03/29/25 08:00 03/29/25 09:00 03/29/25 08:00 03/28/25 04:00 Narrative Exam General: Awake. obese HEENT: Normocephalic, atraumatic, mucous membranes moist. Heart: Regular rate and rhythm, no murmurs. Lungs: Clear to auscultation with no wheezing or crackles. Abdomen: Soft, nondistended, nontender, positive bowel sounds. ?No guarding or rebound tenderness. Neurologic: Alert and oriented x3, no gross neurological deficit, and patient a ble to move all 4 extremities. Extremities: Bilateral 2+ non-pitting edema. No erythema or pain to squeezing of bilateral legs. Skin: No rash or ecchymoses. No evidence of hematoma. Discharge Plan Plan Patient Disposition: HOME (Self Care) Patient condition on transfer: Stable Care Plan Goals: Discharge Recommendations: -Follow up with PCP within 1 week of discharge -Follow up with Cardiology Dr. Trujillo in 1 week -Patient recommended to continue anticoagulation with Eliquis twice daily as per the PE protocol ?10 mg twice daily for 1 week, followed by 5 mg twice daily for at least 3 months (please follow up with your primary doctor to rewew prescription) -Continue rest of medications as previously prescribed -Return to the ED or call EMS if symptoms return and/or worsen. Prescriptions/Referrals Prescriptions/Med Rec: Chadwick Morfin DVT-PE Treat 30D Start 5 mg (74 tabs) tablets,dose pack 5 mg PO BID Qty: 74 0RF Referrals: Krish Trujillo MD [Physician, Cardiology] - 04/05/25 Referral Note: Follow up pulmonary embolism and thrombectomy hospitalization Kg([place])Loreto PA-C [Primary Care Provider] Patient/Caregiver Discharge Instructions Discharge Activity: other Other Discharge Activity Instructions:: Do not lift more than 5 to 10 pounds for the next 7 to 10 days. Other Discharge Diet Instructions: Avoid fatty foods, fried foods, and simple or sugary carbs. Eat whole grains and vegetables. Education Materials: Pulmonary Embolism, Embolism Pulmonary Dc, Eating Heart- Healthy Foods, Venous Thromboembolism Print Language: Guamanian Stand Alone Forms: Gayla Award Info., Patient Portal Info Letter Discharge Order Discharge Orders: Discharge (Routine); Ordered 03/29/25 Ordered By: Lucia Gaffney Quality Discharge Quality Measures VTE prophylaxis and VTE therapy
[2025-03-29 12:00] VITALS: BP 131/81; PULSE 110; PULSE 94; RESP 17; TEMP 36.1; O2SAT 98
--- NOTE | 2025-03-29 12:15 | PC.CC ---
Noted Eliquis prescribed, no Rx coverage on file. S/W [facility] who reported same. Met w/ patient at bedside who stated she does not believe she has Rx coverage nor does she have a PCP. Patient reports she will be following up at the [facility]. Discussed cost of Rx and expected length of therapy. Provided patient with Eliquis free trial coupon as well as application for [employer]. Also referred patient to [phone]. Discussed possibility of transitioning to warfarin if she does not qualify for PAP. Patient expressed understanding. No additional needs at this time.
== END 2025-03-29 13:00 | disposition home or self-care (01) | DRG 981 ==
LOC: SERX 16:35 → SERHOLD 18:57 → S2NX 21:59
PROVIDERS: Internal Medicine Cardiovascular Disease; Admitting Provider Student in an Organized Health Care Education/Training Program; Emergency Provider Emergency Medicine; PCP Nurse Practitioner Family; Visit Provider Internal Medicine
DX: I26.99 Other pulmonary embolism without acute cor pulmonale (principal); I21.A1 Myocardial infarction type 2; J96.01 Acute respiratory failure with hypoxia; Z68.42 Body mass index [BMI] 45.0-49.9, adult; I82.412 Acute embolism and thrombosis of left femoral vein; I82.442 Acute embolism and thrombosis of left tibial vein; I82.452 Acute embolism and thrombosis of left peroneal vein; Z98.84 Bariatric surgery status; R74.01 Elevation of levels of liver transaminase levels; I10 Essential (primary) hypertension; M17.11 Unilateral primary osteoarthritis, right knee; Z96.651 Presence of right artificial knee joint; Z79.01 Long term (current) use of anticoagulants; W01.0XXA Fall on same level from slipping, tripping and stumbling without subsequent striking against object, initial encounter; Z90.710 Acquired absence of both cervix and uterus; E66.813 Obesity, class 3
CPT/HCPCS: 36415; 71045; 71275; 80053; 80061; 80074; 83036; 83690; 83735; 83880; 84100; 84443; 84484; 85014; 85018; 85025; 85347; 85379; 85610; 85730; 86850; 86900; 86901; 87502; 87635; 93005; 93306; 93970; 94640; 94664; 96365; 96366; 96375; 99152; 99153; 99285; A4649; C1726; C1769; C1894; J0168; J0461; J1643; J1644; J2250; J2270; J2312; J2371; J2405; J2470; J3010; J3490; Q9967; A9270; J2305